=== PATIENT | male | born 1965 ===

== ENCOUNTER 2018-08-14 14:38 | Inpatient (IN) | payer MEDICAID, OTHER ==
[2018-08-14] MEDS ORDERED: Iodixanol 320 MG/ML 200 ML BOTTLE IV ONE (14:58)
[2018-08-14] MEDS ORDERED: Midazolam 2 MG/2 ML VIAL ONE (15:10)
[2018-08-14] MEDS ORDERED: Labetalol 5mg/ml (4ml) ONE (15:16)
[2018-08-14 15:24] VITALS: BMI 28.5
[2018-08-14] MEDS ORDERED: Nitroglycerin 50mg in D5W 50 MG/250 ML BOTTLE IV ONE (15:35)
[2018-08-14] MEDS ORDERED: Heparin25000 units/250ml 1/2NS 25,000 UNITS/250 ML BAG IV PRN (15:35)
--- NOTE | 2018-08-14 15:47 | CP.PCM.PN ---
<Beckie Harper Y - Last Filed: 08/14/18 15:44> Subjective - Date & Time of Evaluation Date of Evaluation: 08/14/18 Time of Evaluation: 15:00 - Subjective Subjective: Patient was met in ambulance bay and escorted up to the brush clearing laborer. No adverse events happened during that time. Consent was obtained, and patient successfully transferred onto the cath table under Dr. Jolley's care. He will be observed in the ICU overnight under the hospitalist service. Objective - Medications Medications: Current Medications Acetaminophen (Tylenol 325mg Tab) 650 mg PO Q6 PRN PRN Reason: Fever >100.4 F Aspirin (Ecotrin) 81 mg PO DAILY [facility] Heparin Sodium (Porcine) (Heparin) 5,000 units SC Q12 [facility] Heparin Sodium/Sodium Chloride (Heparin 13418 Units/250ml 1/2 Normal Saline) 25,000 units in 250 mls @ 10.2 mls/hr IV .Q24H PRN; Protocol PRN Reason: PROTOCOL Losartan Potassium (Cozaar) 50 mg PO DAILY [facility] Metoprolol Tartrate (Lopressor) 50 mg PO BID [facility] Ondansetron HCl (Zofran Inj) 4 mg IVP Q6 PRN PRN Reason: Nausea/Vomiting Rosuvastatin Calcium (Crestor) 20 mg PO HS [facility] Ticagrelor (Brilinta) 90 mg PO BID [facility] Warfarin Sodium (Coumadin) 5 mg PO 1800 [facility] Stop: 08/14/18 18:01 <Alexsandra Mccormick V - Last Filed: 08/14/18 18:40> Objective - Vital Signs/Intake and Output Vital Signs (last 24 hours): Temp Pulse Resp BP Pulse Ox 90 16 134/80 98 08/14/18 18:14 08/14/18 18:14 08/14/18 18:15 08/14/18 18:14 Intake and Output: 08/14/18 08/14/18 06:59 18:59 Intake Total 50 Balance 50 - Medications Medications: Current Medications Acetaminophen (Tylenol 325mg Tab) 650 mg PO Q6 PRN PRN Reason: Fever >100.4 F Aspirin (Ecotrin) 81 mg PO DAILY [facility] Heparin Sodium/Sodium Chloride (Heparin 30096 Units/250ml 1/2 Normal Saline) 25,000 units in 250 mls @ 10.2 mls/hr IV .Q24H PRN; Protocol PRN Reason: PROTOCOL Sodium Chloride (Sodium Chloride 0.45%) 1,000 mls @ 40 mls/hr IV .Q24H [facility] Stop: 08/15/18 04:00 Last Admin: 08/14/18 17:18 Dose: 40 mls/hr Losartan Potassium (Cozaar) 50 mg PO DAILY [facility] Metoprolol Tartrate (Lopressor) 50 mg PO BID [facility] Ondansetron HCl (Zofran Inj) 4 mg IVP Q6 PRN PRN Reason: Nausea/Vomiting Rosuvastatin Calcium (Crestor) 20 mg PO HS [facility] - Labs Labs: APTT 34 SECONDS (21-34) 08/14/18 17:55 Attending/Attestation - Attestation I have personally seen and examined this patient.: Yes I have fully participated in the care of the patient.: Yes I have reviewed all pertinent clinical information, including history, physical exam and plan: Yes Notes (Text): Hospitalist Service Responded to Code Heart transfer Accompanied patient on route to brush clearing laborer. patient noted STEMI at [facility] transferred to [facility] as per code heart transfer protocol. per EMR 53 year old male with prior hx of chf, history of aortic stenosis s/p a ortic valve replacement in 2017, reports he had chest pain this morning while working out at the gym this morning; which prompted him to go the hospital. Patient reports he has not taken his coumadin/aspirin for at least one year. No adverse events while accompanying the patient to the brush clearing laborer.
[2018-08-14] MEDS ORDERED: Sodium Chloride 0.45% 1,000 ML IV SCH (16:00)
--- NOTE | 2018-08-14 17:02 | CP.PCM.CON ---
<Aviva Bell - Last Filed: 08/14/18 17:19> History of Present Illness - History of Present Illness History of Present Illness: ICU Consult Note for Dr. Morton HPI: 53 y/o male with PMHx of HTN and severe aortic stenosis presents s/p code heart and cardiac cath by Dr. Jolley. Patient was in [place] [facility] and was transferred to [facility] for emergent cardiac cath. Per EMR he had in [place] brilinta 180 mg, nitrostat 0.4 mg, heparin drip, ASA 325 mg. Patient with positive troponin 2.41 in [place]. Before patient was driven to the ER by his sister in , he was at the gym working out when his chest pain started. Patient states it was a 10/10 pressure that was not relieved with rest. Patient also tried to drink water without relief, but did not immediately take medications at the gym. Of note, patient has significant history of aortic valve stenosis. He had a replacement almost 2 years ago in [facility] in [place]. He states he has a patient relations director in [place] whom he has not seen for more than a year. He does not remember his name. Patient does not take any home meds, though he knows he is supposed to be on ASA and coumadin regularly. 08/24/16 ECHO: severe , AV mod to severe thickened. EF wnl 50-55%, mild concentric LVH. 08/29/16 cardiac cath: severe and severe AI Patient still with some chest pain bilateral and radiation to left arm, same quality as at the gym, however less pain. Pain was 10/10 and now decreased to 3/10. Per RN from label coder, he had SBP 200s and was given labetalol 20 mg IV. Patient also feels lethargic and was also lethargic in the morning before he went to the ED. Also s/p versed and fentanyl from the label coder. Patient with mild KOHLER. Denies SOB, palpitations, nausea, vomiting, diarrhea. ROS: as per HPI PMHx: as stated above PSHx: aortic valve replacement almost 2 years ago FHx: NC SocHx: denies x 3 Meds: None, denies supplements Allergies: NKDA Past Patient History - Past Medical History & Family History Past Medical History?: Yes - Past Social History Smoking Status: Never Smoked - CARDIAC Hx Cardiac Disorders: Yes (for cardiac surgery. AVR) Hx Congestive Heart Failure: Yes Hx Hypertension: Yes Other/Comment: aortic stenosis/insufficiency (for aortic valve replacement next week ) - PULMONARY Hx Respiratory Disorders: No - NEUROLOGICAL Hx Neurological Disorder: No - HEENT Hx HEENT Problems: No - RENAL Hx Chronic Kidney Disease: No - ENDOCRINE/METABOLIC Hx Endocrine Disorders: No - HEMATOLOGICAL/ONCOLOGICAL Hx Blood Disorders: No - INTEGUMENTARY Hx Dermatological Problems: No - MUSCULOSKELETAL/RHEUMATOLOGICAL Hx Musculoskeletal Disorders: No Hx Falls: No - GASTROINTESTINAL Hx Gastrointestinal Disorders: No - GENITOURINARY/GYNECOLOGICAL Hx Genitourinary Disorders: No - PSYCHIATRIC Hx Psychophysiologic Disorder: No Hx Substance Use: No - SURGICAL HISTORY Hx Surgeries: No - ANESTHESIA Hx Anesthesia: Yes Hx Anesthesia Reactions: No Meds Allergies/Adverse Reactions: Allergies Allergy/AdvReac Type Severity Reaction Status Date / Time No Known Allergies Allergy Verified 08/14/18 14:18 - Medications Medications: Current Medications Acetaminophen (Tylenol 325mg Tab) 650 mg PO Q6 PRN PRN Reason: Fever >100.4 F Aspirin (Ecotrin) 81 mg PO DAILY [facility] Heparin Sodium/Sodium Chloride (Heparin 88065 Units/250ml 1/2 Normal Saline) 25,000 units in 250 mls @ 10.2 mls/hr IV .Q24H PRN; Protocol PRN Reason: PROTOCOL Sodium Chloride (Sodium Chloride 0.45%) 1,000 mls @ 40 mls/hr IV .Q24H [facility] Stop: 08/15/18 04:00 Losartan Potassium (Cozaar) 50 mg PO DAILY [facility] Metoprolol Tartrate (Lopressor) 50 mg PO BID [facility] Ondansetron HCl (Zofran Inj) 4 mg IVP Q6 PRN PRN Reason: Nausea/Vomiting Rosuvastatin Calcium (Crestor) 20 mg PO HS [facility] Warfarin Sodium (Coumadin) 5 mg PO 1800 [facility] Stop: 08/14/18 18:01 Physical Exam - Constitutional Appears: Well - Head Exam Head Exam: ATRAUMATIC, NORMAL INSPECTION, NORMOCEPHALIC - Eye Exam Eye Exam: EOMI, Normal appearance - Neck Exam Neck exam: Positive for: Normal Inspection - Respiratory Exam Respiratory Exam: Clear to Auscultation Bilateral, NORMAL BREATHING PATTERN - Cardiovascular Exam Cardiovascular Exam: Clicks - GI/Abdominal Exam GI & Abdominal Exam: Normal Bowel Sounds, Soft. absent: Distended, Firm, Guarding, Rebound, Rigid - Extremities Exam Extremities exam: Positive for: normal capillary refill, normal inspection, pedal pulses present. Negative for: pedal edema - Neurological Exam Neurological exam: Alert, Oriented x3 - Psychiatric Exam Psychiatric exam: Normal Affect, Normal Mood - Skin Skin Exam: Dry, Intact, Normal Color, Warm Assessment & Plan - Assessment and Plan (Free Text) Assessment: 53 y/o male with PMHx of HTN and severe aortic stenosis presents s/p code heart and cardiac cath by Dr. Jolley. neuro -AAOx3 -no acute issues CV -s/p cardiac cath POD0 08/14/18. Per label coder, only vasospasm was seen. Nitro drip given. -continue with therapeutic cardiac heparin drip -cozaar 50 mg, metoprolol 50 mg BID, ASA, crestor 20 mg, warfarin 5 mg -pending FT4, A1c, lipid panel, TSH -ECHO ordered, pending -follow Dr. Jolley, cardio, recs Pulm -2L NC PRN -maintain SpO2 > 92% -no acute issues GI -no acute issues -Heart healthy diet Renal -on NS 40ml/h -no acute issues -CMP qAM Endo -pending FT4, TSH, A1c ID -patient afebrile, no leukocytosis -no acute issues Heme -on heparin drip + warfarin 5 mg -PT/PTT DVT: heparin drip tonight then tomorrow 5000 sq q12h GI ppx: not indicated Aviva Bell PGY1 <Hardeep Morton - Last Filed: 08/14/18 18:55> Meds - Medications Medications: Current Medications Acetaminophen (Tylenol 325mg Tab) 650 mg PO Q6 PRN PRN Reason: Fever >100.4 F Aspirin (Ecotrin) 81 mg PO DAILY [facility] Heparin Sodium/Sodium Chloride (Heparin 04940 Units/250ml 1/2 Normal Saline) 25,000 units in 250 mls @ 10.2 mls/hr IV .Q24H PRN; Protocol PRN Reason: PROTOCOL Sodium Chloride (Sodium Chloride 0.45%) 1,000 mls @ 40 mls/hr IV .Q24H [facility] Stop: 08/15/18 04:00 Last Admin: 08/14/18 17:18 Dose: 40 mls/hr Losartan Potassium (Cozaar) 50 mg PO DAILY [facility] Metoprolol Tartrate (Lopressor) 50 mg PO BID [facility] Last Admin: 08/14/18 18:31 Dose: 50 mg Ondansetron HCl (Zofran Inj) 4 mg IVP Q6 PRN PRN Reason: Nausea/Vomiting Rosuvastatin Calcium (Crestor) 20 mg PO HS [facility] Results - Vital Signs Recent Vital Signs: Last Vital Signs Temp Pulse 90 08/14/18 18:14 Resp 16 08/14/18 18:14 BP 134/80 08/14/18 18:15 Pulse Ox 98 08/14/18 18:14 - Labs Labs: Laboratory Results - last 24 hr 08/14/18 08/14/18 08/14/18 17:55 17:55 17:55 APTT 34 Hemoglobin A1c 5.6 Triglycerides 170 H Cholesterol 242 H LDL Cholesterol Direct 149 H HDL Cholesterol 57 TSH 3rd Generation 0.64 Attending/Attestation - Attestation I have personally seen and examined this patient.: Yes I have fully participated in the care of the patient.: Yes I have reviewed all pertinent clinical information: Yes Notes (Text): 08/14/18 18:55 Patient seen and examined in the intensive care unit Case discussed with cardiology Status post cardiac cath with coronary vasospasm On Tridil drip Continue present treatment as per cardiol
--- NOTE | 2018-08-14 18:13 | CP.PCM.HP ---
<Aviva Bell - Last Filed: 08/14/18 18:17> History of Present Illness - History of Present Illness History of Present Illness: Medicine H&P for Dr. Mccormick HPI: 53 y/o male with PMHx of HTN and severe aortic stenosis presents s/p code heart and cardiac cath by Dr. Jolley. Patient was in [place] ER and was transferred to [facility] for emergent cardiac cath. Per EMR he had in [place] brilinta 180 mg, nitrostat 0.4 mg, heparin drip, ASA 325 mg. Patient with positive troponin 2.41 in [place]. Before patient was driven to the ER by his sister in , he was at the gym working out when his chest pain started. Patient states it was a 10/10 pressure that was not relieved with rest. Patient also tried to drink water without relief, but did not immediately take medications at the gym. Of note, patient has significant history of aortic valve stenosis. He had a replacement almost 2 years ago in [facility] in [place]. He states he has a mulcher operator in [place] whom he has not seen for more than a year. He does not remember his name. Patient does not take any home meds, though he knows he is supposed to be on ASA and coumadin regularly. 08/24/16 ECHO: severe , AV mod to severe thickened. EF wnl 50-55%, mild concentric LVH. 08/29/16 cardiac cath: severe and severe AI Patient still with some chest pain bilateral and radiation to left arm, same quality as at the gym, however less pain. Pain was 10/10 and now decreased to 3/10. Per RN from public works laborer, he had SBP 200s and was given labetalol 20 mg IV. Patient also feels lethargic and was also lethargic in the morning before he went to the ED. Also s/p versed and fentanyl from the public works laborer. Patient with mild KOHLER. Denies SOB, palpitations, nausea, vomiting, diarrhea. ROS: as per HPI PMHx: as stated above PSHx: aortic valve replacement almost 2 years ago FHx: NC SocHx: denies x 3 Meds: None, denies supplements Allergies: NKDA Present on Admission - Present on Admission Any Indicators Present on Admission: Yes Review of Systems - Constitutional Constitutional: As Per HPI Past Patient History - Past Medical History & Family History Past Medical History?: Yes - Past Social History Smoking Status: Never Smoked - CARDIAC Hx Cardiac Disorders: Yes (for cardiac surgery. AVR) Hx Congestive Heart Failure: Yes Hx Hypertension: Yes Other/Comment: aortic stenosis/insufficiency (for aortic valve replacement next week ) - PULMONARY Hx Respiratory Disorders: No - NEUROLOGICAL Hx Neurological Disorder: No - HEENT Hx HEENT Problems: No - RENAL Hx Chronic Kidney Disease: No - ENDOCRINE/METABOLIC Hx Endocrine Disorders: No - HEMATOLOGICAL/ONCOLOGICAL Hx Blood Disorders: No - INTEGUMENTARY Hx Dermatological Problems: No - MUSCULOSKELETAL/RHEUMATOLOGICAL Hx Musculoskeletal Disorders: No Hx Falls: No - GASTROINTESTINAL Hx Gastrointestinal Disorders: No - GENITOURINARY/GYNECOLOGICAL Hx Genitourinary Disorders: No - PSYCHIATRIC Hx Psychophysiologic Disorder: No Hx Substance Use: No - SURGICAL HISTORY Hx Surgeries: No - ANESTHESIA Hx Anesthesia: Yes Hx Anesthesia Reactions: No Meds Allergies/Adverse Reactions: Allergies Allergy/AdvReac Type Severity Reaction Status Date / Time No Known Allergies Allergy Verified 08/14/18 14:18 Physical Exam - Constitutional Appears: Well - Head Exam Head Exam: ATRAUMATIC, NORMAL INSPECTION, NORMOCEPHALIC - Eye Exam Eye Exam: EOMI, Normal appearance - Neck Exam Neck exam: Positive for: Normal Inspection - Respiratory Exam Respiratory Exam: Clear to Auscultation Bilateral, NORMAL BREATHING PATTERN - Cardiovascular Exam Cardiovascular Exam: Clicks (throughout all cardiac listening posts), REGULAR R HYTHM. absent: Bradycardia, Tachycardia - GI/Abdominal Exam GI & Abdominal Exam: Normal Bowel Sounds, Soft. absent: Distended, Firm, Guarding, Rebound, Rigid - Extremities Exam Extremities exam: Positive for: normal capillary refill, normal inspection, pedal pulses present - Neurological Exam Neurological exam: Alert, Oriented x3 - Psychiatric Exam Psychiatric exam: Normal Affect, Normal Mood - Skin Skin Exam: Dry, Intact, Normal Color, Warm Results - Vital Signs Recent Vital Signs: Last Vital Signs Temp Pulse 74 08/14/18 17:30 Resp 19 08/14/18 17:30 BP 139/87 08/14/18 17:30 Pulse Ox 100 08/14/18 17:30 Assessment & Plan - Assessment and Plan (Free Text) Assessment: 53 y/o male with PMHx of HTN and severe aortic stenosis presents s/p code heart and cardiac cath by Dr. Jolley. neuro -AAOx3 -no acute issues CV -s/p cardiac cath POD0 08/14/18. Per public works laborer, only vasospasm was seen. Nitro drip given. -continue with therapeutic cardiac heparin drip -cozaar 50 mg, metoprolol 50 mg BID, ASA, crestor 20 mg, warfarin 5 mg -pending FT4, A1c, lipid panel, TSH -ECHO ordered, pending -follow Dr. Jolley, cardio, recs Pulm -2L NC PRN -maintain SpO2 > 92% -no acute issues GI -no acute issues -Heart healthy diet Renal -on NS 40ml/h -no acute issues -CMP qAM Endo -pending FT4, TSH, A1c ID -patient afebrile, no leukocytosis -no acute issues Heme -on heparin drip + warfarin 5 mg -PT/PTT DVT: heparin drip GI ppx: not indicated Aviva Bell PGY1 <Alexsandra Mccormick V - Last Filed: 08/15/18 09:24> Results - Vital Signs Recent Vital Signs: Last Vital Signs Temp Pulse 90 08/14/18 18:14 Resp 16 08/14/18 18:14 BP 134/80 08/14/18 18:15 Pulse Ox 98 08/14/18 18:14 - Labs Result Diagrams: 08/15/18 02:45 08/15/18 02:45 Labs: Laboratory Results - last 24 hr 08/14/18 08/14/18 08/14/18 17:55 17:55 17:55 APTT 34 Hemoglobin A1c 5.6 Triglycerides 170 H Cholesterol 242 H LDL Cholesterol Direct 149 H HDL Cholesterol 57 Attending/Attestation - Attestation I have personally seen and examined this patient.: Yes I have fully participated in the care of the patient.: Yes I have reviewed all pertinent clinical information: Yes Notes (Text): This is late computer entry for 08/14/18. Patient seen, examined, and case discussed with medical coding technician. Patient with known hx of mechanical aortic valve replacement treatment of aortic stenosis in 2017, history of congestive heart failure, history of noncompliance with aspirin and coumadin who comes in following [place], reporting pain over the pectoralis muscle which did not subsided upon cessation of working out, advised his sister to bring him to the hospital which his symptoms did not improve. Patient was seen in [place] ER wherein code heart protocol was initiated and sent to [facility] for cardiac cath per protocol. Patient underwent cardiac cath which revealed coronary vasospasm. Following cardiac cath, patient admitted to the intensive care unit. 1. Chest Pain STEMI Assessment/Plan * Patient was called as code heart on 08/14/17 at [place] ER and transferred to [facility] per code heart protocol * sales operations director (Dr. Jolley) division commander-->help appreciated * Patient received Aspirin 325mg PO X1, Brilinta 180mg PO X1 and Heparin bolus/heparin drip, and Nitro in the ED. * Chest xray (08/14/18): no active disease. No acute/significant interval changes. * EKG (08/14/18): anterolateral STEMI (1, avl, v4-v6) * Prior cardiac cath (08/29/16): unremarkable coronary circulation, severe aortic stenosis * Cardiac cath awaiting official report; endorsed Coronary vasospasm * Prior echo (08/17/16): left atrium mildly dilated, spontaneous contrast in left atrium consistent with low flow state. Spontaneous contrast is seen in the left atrial appendage. Right atrium is mildly dilated. Spontaneous contrast is karla in the right atrium consistent with low flow state. Aortic valve is severely calcified. Severe aortic regurgitation. Severe valvular aortic stenosis. * Pending echocardiogram * Heparin drip * Aspirin 81mg PO daily * Losartan 50mg PO daily * Lopressor 50mg PO BID * Crestor 20mg POqHS 2. History of Aortic Stenosis s/p Aortic Valve Replacement in 2017 (mechanical) History of noncompliance with anticoagulation post procedure Assessment/Plan * Patient is on heparin drip; will need to be transitioned back to Coumadin to theraputic dosing prior to discharge 3. Prophylactic measure * Heparin drip * GI ppx not indicated
[2018-08-14] MEDS: Heparin25000 units/250ml 1/2NS 25,000 UNITS/250 ML BAG IV PRN (19:35)
[2018-08-14 20:43] LABS: BARBITURATES, UR NEGATIVE (NEGATIVE); OPIATES, UR NEGATIVE (NEGATIVE); PHENCYCLIDINE, UR NEGATIVE (NEGATIVE)
[2018-08-14 20:45] LABS: BENZODIAZEPINES, UR POSITIVE (NEGATIVE)
[2018-08-15 02:48] LABS: BASO % 0.5 % (0.0-2.0); EOS # 0.2 K/uL (0.0-0.7); EOS % 1.7 % (0.0-4.0); LYMPH % 23.1 % (20.0-40.0); MEAN CELL VOLUME 95.2 fL (80.0-94.0); MEAN CORPUSCULAR HEMOGLOBIN 31.7 pg (27.0-31.0); MEAN CORPUSCULAR HGB CONC 33.3 g/dL (33.0-37.0); MEAN PLATELET VOLUME 9.2 fL (7.2-11.7); MONO # 0.8 K/uL (0.0-0.8); MONO % 8.6 % (0.0-10.0); NEUT # 5.9 K/uL (1.8-7.0); NEUT % 66.1 % (50.0-75.0); RBC 4.44 Mil/uL (4.40-5.90); RED CELL DISTRIBUTION WIDTH 13.1 % (11.5-14.5); WHITE BLOOD COUNT 8.9 K/uL (4.8-10.8)
[2018-08-15 03:02] LABS: ALB/GLOB RATIO 1.5 (1.0-2.1); ALBUMIN 4.3 g/dL (3.5-5.0); ALT/SGPT 55 U/L (21-72); AST/SGOT 435 U/L (17-59); BLOOD UREA NITROGEN 19 mg/dL (9-20); GFR NON-AFRICAN AMERICAN > 60
--- NOTE | 2018-08-15 07:23 | CP.PCM.PN ---
Subjective - Date & Time of Evaluation Date of Evaluation: 08/15/18 Time of Evaluation: 07:18 - Subjective Subjective: Patient s/p Cardiac Cath 1. Normal coronaries ? Distal LAD spasm 2. No Aortic dissection or aneurysm Recommend medical management for HTN and Hyperlipidemia Cardizem 30mg po bid for ? Coronary spasm For Mechanical Aortic valve recommend ASA 81 daily plus Coumadin for a goal INR of 2-3 Continue IV Heparic till patient reaches goal INR Recommend f/u with [facility] for medicine and cardiology No further cardiac work up needed at this time I will sign off. Please reconsult if additional help needed Thank you Objective - Vital Signs/Intake and Output Vital Signs (last 24 hours): Temp Pulse Resp BP Pulse Ox 98 F 71 18 151/83 H 99 08/15/18 04:00 08/15/18 05:00 08/15/18 05:00 08/15/18 04:48 08/15/18 05:00 Intake and Output: 08/15/18 08/15/18 06:59 18:59 Intake Total 1382.0 Output Total 2200 Balance -818.0 - Medications Medications: Current Medications Acetaminophen (Tylenol 325mg Tab) 650 mg PO Q6 PRN PRN Reason: Fever >100.4 F Aspirin (Ecotrin) 81 mg PO DAILY [facility] Heparin Sodium/Sodium Chloride (Heparin 33485 Units/250ml 1/2 Normal Saline) 25,000 units in 250 mls @ 10.2 mls/hr IV .Q24H PRN; Protocol PRN Reason: PROTOCOL Last Admin: 08/14/18 19:35 Dose: 12 units/kg/hr, 10.2 mls/hr Losartan Potassium (Cozaar) 50 mg PO DAILY [facility] Metoprolol Tartrate (Lopressor) 50 mg PO BID [facility] Last Admin: 08/14/18 18:31 Dose: 50 mg Ondansetron HCl (Zofran Inj) 4 mg IVP Q6 PRN PRN Reason: Nausea/Vomiting Pneumococcal Polyvalent Vaccine (Pneumovax 23 Vaccine) 0.5 ml IM .ONCE ONE Stop: 08/16/18 10:01 Rosuvastatin Calcium (Crestor) 20 mg PO HS [facility] Last Admin: 08/14/18 21:24 Dose: 20 mg - Labs Labs: 08/15/18 02:45 08/15/18 02:45 APTT 59 SECONDS (21-34) H D 08/15/18 02:45
[2018-08-15 08:33] LABS: INR 1.2; PROTHROMBIN TIME 12.8 SECONDS (9.7-12.2)
[2018-08-15] MEDS ORDERED: Potassium Chloride 20 mEq ER Tab PO ONE (09:00)
--- NOTE | 2018-08-15 09:31 | CP.PCM.PN ---
Subjective - Date & Time of Evaluation Date of Evaluation: 08/15/18 Time of Evaluation: 09:00 - Subjective Subjective: Medical Attending Note: Patient see and examined at bedside. Patient completed breakfast this morning. Patient reports muscle aches over the pectoralist muscle. Patient denies shortness of breath, denies palpitations, denies headache, denies abdominal pain, denies nausea, denies vomitting, denies constipation, denies urinary complaints. Objective - Vital Signs/Intake and Output Vital Signs (last 24 hours): Temp Pulse Resp BP Pulse Ox 97.3 F L 72 15 176/96 H 99 08/15/18 08:00 08/15/18 08:17 08/15/18 08:17 08/15/18 08:18 08/15/18 08:17 Intake and Output: 08/15/18 08/15/18 06:59 18:59 Intake Total 1492.2 30.6 Output Total 2600 Balance -1107.8 30.6 - Medications Medications: Current Medications Acetaminophen (Tylenol 325mg Tab) 650 mg PO Q6 PRN PRN Reason: Fever >100.4 F Aspirin (Ecotrin) 81 mg PO DAILY [facility] Heparin Sodium/Sodium Chloride (Heparin 61404 Units/250ml 1/2 Normal Saline) 25,000 units in 250 mls @ 10.2 mls/hr IV .Q24H PRN; Protocol PRN Reason: PROTOCOL Last Admin: 08/14/18 19:35 Dose: 12 units/kg/hr, 10.2 mls/hr Losartan Potassium (Cozaar) 50 mg PO DAILY [facility] Metoprolol Tartrate (Lopressor) 50 mg PO BID [facility] Last Admin: 08/14/18 18:31 Dose: 50 mg Ondansetron HCl (Zofran Inj) 4 mg IVP Q6 PRN PRN Reason: Nausea/Vomiting Pneumococcal Polyvalent Vaccine (Pneumovax 23 Vaccine) 0.5 ml IM .ONCE ONE Stop: 08/16/18 10:01 Rosuvastatin Calcium (Crestor) 20 mg PO HS [facility] Last Admin: 08/14/18 21:24 Dose: 20 mg - Labs Labs: 08/15/18 02:45 08/15/18 02:45 PT 12.8 SECONDS (9.7-12.2) H 08/15/18 08:05 INR 1.2 08/15/18 08:05 APTT 62 SECONDS (21-34) H 08/15/18 08:05 - Constitutional Appears: Non-toxic, No Acute Distress - Head Exam Head Exam: NORMAL INSPECTION - Eye Exam Eye Exam: EOMI, PERRL Pupil Exam: NORMAL ACCOMODATION, PERRL Additional comments: left upper eye swelling (reduced) no discharge - Respiratory Exam Respiratory Exam: Clear to Ausculation Bilateral, NORMAL BREATHING PATTERN. absent: Rales, Rhonchi, Wheezes - Cardiovascular Exam Cardiovascular Exam: +S1, +S2, Murmur Additional comments: mechanical click - GI/Abdominal Exam GI & Abdominal Exam: Soft, Normal Bowel Sounds. absent: Distended, Firm, Guarding, Rigid, Tenderness, Rebound Additional comments: right side groin: cath site clean/dry/intact - Extremities Exam Extremities Exam: absent: Pedal Edema, Tenderness - Neurological Exam Neurological Exam: Alert, Awake, Oriented x3 Neuro motor strength exam: Left Upper Extremity: 5, Right Upper Extremity: 5, Left Lower Extremity: 5, Right Lower Extremity: 5 - Psychiatric Exam Psychiatric exam: Normal Affect, Normal Mood - Skin Skin Exam: Dry, Normal Color, Warm Assessment and Plan (1) STEMI (ST elevation myocardial infarction) Assessment & Plan: s/p cath; coronary spasm noted Status: Acute (2) Coronary artery vasospasm Assessment & Plan: cardiac cath 2018 Status: Acute (3) Status post mechanical aortic valve replacement Assessment & Plan: 2017 in [facility] noncompliant on aspirin/coumadin post procedure advised he will put himself at risk for stroke if he continues to be noncompliant Status: Chronic (4) Aortic stenosis Assessment & Plan: s/p mechanical aortic valve replacement in 2017 Status: Chronic (5) HTN (hypertension) Assessment & Plan: uncontrolled on arb, beta ludivina, and start calcium channel ludivina Status: Chronic (6) Lipid disorder Assessment & Plan: statin diet/exercise modifications Status: Chronic (7) Prophylactic measure Status: Acute Attending/Attestation - Attestation I have personally seen and examined this patient.: Yes I have fully participated in the care of the patient.: Yes I have reviewed all pertinent clinical information, including history, physical exam and plan: Yes Notes (Text): 1. Chest Pain STEMI Assessment/Plan * Patient was called as code heart on 08/14/17 at [place] [facility] and [facility] * tube washer (Dr. Jolley) nursing information systems coordinator-->help appreciated * Patient s/p Cardiac Cath 08/14/18 * 1. Normal coronaries ? Distal LAD spasm * 2. No Aortic dissection or aneurysm * Recommend medical management for HTN and Hyperlipidemia * Cardizem 30mg po bid for ? Coronary spasm * For Mechanical Aortic valve recommend ASA 81 daily plus Coumadin for a goal INR of 2-3 * Continue IV Heparic till patient reaches goal INR * Recommend f/u with [facility] for medicine and cardiology * Patient received Aspirin 325mg PO X1, Brilinta 180mg PO X1 and Heparin bolus/heparin drip, and Nitro in the ED. * Chest xray (08/14/18): no active disease. No acute/significant interval changes. * EKG (08/14/18): anterolateral STEMI (1, avl, v4-v6) * Prior cardiac cath (08/29/16): unremarkable coronary circulation, severe aortic stenosis * Prior echo (08/17/16): left atrium mildly dilated, spontaneous contrast in left atrium consistent with low flow state. Spontaneous contrast is seen in the left atrial appendage. Right atrium is mildly dilated. Spontaneous contrast is karla in the right atrium consistent with low flow state. Aortic valve is severely calcified. Severe aortic regurgitation. Severe valvular aortic stenosis * Pending echocardiogram * Heparin drip * Aspirin 81mg PO daily * Losartan 50mg PO daily * Lopressor 50mg PO BID * Crestor 20mg POqHS * Start Cardizem 30mg PO BID * UDS: negative except for benzo * hgba1c: 5.6 2. History of Aortic Stenosis s/p Aortic Valve Replacement in 2017 (mechanical) History of noncompliance with anticoagulation post procedure Assessment/Plan * Patient is on heparin drip; will need to be transitioned back to Coumadin to theraputic dosing prior to discharge * Received coumadin 5mg PO last night, awaiting INR for this morning 3. Hypokalemia Assessment/Plan * monitor and replete if needed 4. Hypertension, uncontrolled Assessment/Plan * uncontrolled * Losartan 50mg PO Daily * Lopressor 50mg PO BID * Start Cardizem 30mg PO BID 5. Lipid Disorder Assessment/Plan * Lipid panel: 170 TG, 242 chol, 149 LDL, 57 HDL * Crestor 20mg POqHS 6. Stye over Left Eye Assessment/Plan * Advised to use warm compresses to relieve mild swelling 7. Prophylactic measure * Heparin drip * GI ppx not clinically indicated
--- NOTE | 2018-08-15 10:59 | CP.PCM.PN ---
Subjective - Date & Time of Evaluation Date of Evaluation: 08/15/18 Time of Evaluation: 10:59 - Subjective Subjective: Patient is a 53-year-old male had a history of aortic valve replacement. Admitted to the hospital with chest pain. Emergency angiogram, showing no evidence of coronary obstruction. Possible spasm. Currently on heparin drip before aortic valve mechanical. He is doing well. Patient is stable. He can be transferred to telemetry. Continue the heparin. Losartan, beta-ludivina and will follow the patient. Objective - Vital Signs/Intake and Output Vital Signs (last 24 hours): Temp Pulse Resp BP Pulse Ox 97.3 F L 73 16 158/84 H 98 08/15/18 08:00 08/15/18 10:30 08/15/18 10:30 08/15/18 10:18 08/15/18 10:30 Intake and Output: 08/15/18 08/15/18 06:59 18:59 Intake Total 1492.2 40.8 Output Total 2600 Balance -1107.8 40.8 - Medications Medications: Current Medications Acetaminophen (Tylenol 325mg Tab) 650 mg PO Q6 PRN PRN Reason: Fever >100.4 F Aspirin (Ecotrin) 81 mg PO DAILY [facility] Last Admin: 08/15/18 09:33 Dose: 81 mg Diltiazem HCl (Cardizem) 30 mg PO BID [facility] Last Admin: 08/15/18 10:26 Dose: 30 mg Famotidine (Pepcid) 20 mg PO BID [facility] Last Admin: 08/15/18 10:26 Dose: 20 mg Heparin Sodium/Sodium Chloride (Heparin 71720 Units/250ml 1/2 Normal Saline) 25,000 units in 250 mls @ 10.2 mls/hr IV .Q24H PRN; Protocol PRN Reason: PROTOCOL Last Admin: 08/14/18 19:35 Dose: 12 units/kg/hr, 10.2 mls/hr Losartan Potassium (Cozaar) 50 mg PO DAILY [facility] Last Admin: 08/15/18 09:33 Dose: 50 mg Metoprolol Tartrate (Lopressor) 50 mg PO BID [facility] Last Admin: 08/15/18 09:31 Dose: 50 mg Ondansetron HCl (Zofran Inj) 4 mg IVP Q6 PRN PRN Reason: Nausea/Vomiting Pneumococcal Polyvalent Vaccine (Pneumovax 23 Vaccine) 0.5 ml IM .ONCE ONE Stop: 08/16/18 10:01 Rosuvastatin Calcium (Crestor) 20 mg PO HS [facility] Last Admin: 08/14/18 21:24 Dose: 20 mg Warfarin Sodium (Coumadin) 5 mg PO 1800 [facility] Stop: 08/15/18 18:01 - Labs Labs: 08/15/18 02:45 08/15/18 02:45 PT 12.8 SECONDS (9.7-12.2) H 08/15/18 08:05 INR 1.2 08/15/18 08:05 APTT 62 SECONDS (21-34) H 08/15/18 08:05
[2018-08-15] MEDS: Heparin25000 units/250ml 1/2NS 25,000 UNITS/250 ML BAG IV PRN (21:56)
[2018-08-16 07:09] LABS: INR 1.2; PROTHROMBIN TIME 13.4 SECONDS (9.7-12.2)
[2018-08-16 07:14] LABS: BASO % 0.3 % (0.0-2.0); EOS % 0.3 % (0.0-4.0); HEMOGLOBIN 14.2 g/dL (12.0-18.0); LYMPH # 1.8 K/uL (1.0-4.3); LYMPH % 19.2 % (20.0-40.0); MEAN CELL VOLUME 95.7 fL (80.0-94.0); MEAN CORPUSCULAR HEMOGLOBIN 32.4 pg (27.0-31.0); MEAN CORPUSCULAR HGB CONC 33.9 g/dL (33.0-37.0); MEAN PLATELET VOLUME 9.7 fL (7.2-11.7); MONO % 10.2 % (0.0-10.0); NEUT # 6.6 K/uL (1.8-7.0); NRBC % 0.2 % (0.0-2.0); RBC 4.38 Mil/uL (4.40-5.90); RED CELL DISTRIBUTION WIDTH 13.1 % (11.5-14.5); WHITE BLOOD COUNT 9.4 K/uL (4.8-10.8)
[2018-08-16 07:25] LABS: ALB/GLOB RATIO 1.4 (1.0-2.1); ALBUMIN 4.4 g/dL (3.5-5.0); ALT/SGPT 55 U/L (21-72); AST/SGOT 260 U/L (17-59); BLOOD UREA NITROGEN 17 mg/dL (9-20); CALCIUM 9.2 mg/dl (8.6-10.4); GFR NON-AFRICAN AMERICAN > 60
[2018-08-16] MEDS ORDERED: Pneumococcal 23-Valent Vaccine IM ONE (10:00)
--- NOTE | 2018-08-16 18:16 | CP.PCM.PN ---
Subjective - Date & Time of Evaluation Date of Evaluation: 08/16/18 Time of Evaluation: 18:00 - Subjective Subjective: Medical Attending Note patient seen and examined at bedside. Patient is accompanied with his son in law, mother in law and son. Patient allows to speak his medical information in front of his family. patient denies chest pain, denies cough, denies headache, denies abdominal pain, denies nausea, denies vomitting, denies constipation, d enies diarrhea. Objective - Vital Signs/Intake and Output Vital Signs (last 24 hours): Temp Pulse Resp BP Pulse Ox 98.8 F 67 19 133/86 100 08/16/18 12:00 08/16/18 12:00 08/16/18 12:00 08/16/18 12:00 08/16/18 12:00 Intake and Output: 08/16/18 08/16/18 06:59 18:59 Intake Total 460.2 1462.4 Output Total 1380 Balance 460.2 82.4 - Medications Medications: Current Medications Acetaminophen (Tylenol 325mg Tab) 650 mg PO Q6 PRN PRN Reason: Fever >100.4 F Aspirin (Ecotrin) 81 mg PO DAILY [facility] Last Admin: 08/16/18 09:12 Dose: 81 mg Diltiazem HCl (Cardizem) 30 mg PO BID [facility] Last Admin: 08/16/18 17:12 Dose: 30 mg Famotidine (Pepcid) 20 mg PO BID [facility] Last Admin: 08/16/18 17:12 Dose: 20 mg Heparin Sodium/Sodium Chloride (Heparin 84028 Units/250ml 1/2 Normal Saline) 25,000 units in 250 mls @ 10.2 mls/hr IV .Q24H PRN; Protocol PRN Reason: PROTOCOL Last Admin: 08/15/18 21:56 Dose: 12 units/kg/hr, 10.2 mls/hr Losartan Potassium (Cozaar) 50 mg PO DAILY [facility] Last Admin: 08/16/18 09:12 Dose: 50 mg Metoprolol Tartrate (Lopressor) 50 mg PO BID [facility] Last Admin: 08/16/18 17:12 Dose: 50 mg Rosuvastatin Calcium (Crestor) 20 mg PO HS [facility] Last Admin: 08/15/18 21:53 Dose: 20 mg - Labs Labs: 08/16/18 06:48 08/16/18 06:48 PT 13.4 SECONDS (9.7-12.2) H 08/16/18 06:48 INR 1.2 08/16/18 06:48 APTT 71 SECONDS (21-34) H D 08/16/18 06:48 - Constitutional Appears: Non-toxic, No Acute Distress - Head Exam Head Exam: NORMAL INSPECTION - Eye Exam Eye Exam: EOMI - ENT Exam ENT Exam: Mucous Membranes Moist - Respiratory Exam Respiratory Exam: Clear to Ausculation Bilateral, NORMAL BREATHING PATTERN. absent: Rales, Rhonchi, Wheezes - Cardiovascular Exam Cardiovascular Exam: Clicks, REGULAR RHYTHM, +S1, +S2 - GI/Abdominal Exam GI & Abdominal Exam: Soft, Normal Bowel Sounds. absent: Distended, Firm, Guarding, Rigid, Tenderness, Hypoactive Bowel Sounds, Rebound - Extremities Exam Extremities Exam: absent: Joint Swelling, Pedal Edema, Tenderness - Neurological Exam Neurological Exam: Alert, Awake, Oriented x3 - Psychiatric Exam Psychiatric exam: Normal Affect, Normal Mood - Skin Skin Exam: Dry, Intact, Normal Color, Warm Assessment and Plan (1) STEMI (ST elevation myocardial infarction) Status: Acute (2) Coronary artery vasospasm Status: Acute (3) Status post mechanical aortic valve replacement Status: Chronic (4) Aortic stenosis Status: Chronic (5) HTN (hypertension) Status: Chronic (6) Lipid disorder Status: Chronic (7) Prophylactic measure Status: Acute Attending/Attestation - Attestation I have personally seen and examined this patient.: Yes I have fully participated in the care of the patient.: Yes I have reviewed all pertinent clinical information, including history, physical exam and plan: Yes Notes (Text): 08/16/18 18:17 1. Chest Pain STEMI Assessment/Plan * Patient was called as code heart on 08/14/17 at [place] [facility] and transferred to [facility] per code heart protocol * improvement lead (Dr. Jolley) skin lifter bacon-->help appreciated * Patient s/p Cardiac Cath 08/14/18 * 1. Normal coronaries ? Distal LAD spasm * 2. No Aortic dissection or aneurysm * Recommend medical management for HTN and Hyperlipidemia * Cardizem 30mg po bid for ? Coronary spasm * For Mechanical Aortic valve recommend ASA 81 daily plus Coumadin for a goal INR of 2-3 * Continue IV Heparic till patient reaches goal INR * Recommend f/u with [facility] for medicine and cardiology * Patient received Aspirin 325mg PO X1, Brilinta 180mg PO X1 and Heparin bolus/ heparin drip, and Nitro in the ED. * Chest xray (08/14/18): no active disease. No acute/significant interval changes. * EKG (08/14/18): anterolateral STEMI (1, avl, v4-v6) * Prior cardiac cath (08/29/16): unremarkable coronary circulation, severe aortic stenosis * Prior echo (08/17/16): left atrium mildly dilated, spontaneous contrast in left atrium consistent with low flow state. Spontaneous contrast is seen in the left atrial appendage. Right atrium is mildly dilated. Spontaneous contrast is karla in the right atrium consistent with low flow state. Aortic valve is severely calcified. Severe aortic regurgitation. Severe valvular aortic stenosis * Pending echocardiogram * Heparin drip being transitioned to coumadin * Patient is not a reliable candidate to self-administer lovenox shots at home; reports he will not do it. He will need INR checks. patient is not indicated for NOAC. Patient will need Coumadin. * Aspirin 81mg PO daily * Increase Losartan 100mg PO daily * Lopressor 50mg PO BID * Crestor 20mg POqHS * Start Cardizem 30mg PO BID * UDS: negative except for benzo * hgba1c: 5.6 2. History of Aortic Stenosis s/p Aortic Valve Replacement in 2017 (mechanical) History of noncompliance with anticoagulation post procedure Assessment/Plan * Patient is on heparin drip; will need to be transitioned back to Coumadin to theraputic dosing prior to discharge * Received coumadin 5mg PO last night * Patient is noncompliant and self admits he will not self-administer lovenox shots as he is being bridged nor NOAC is indicated for mechanical aortic valve. 3. Hypokalemia Assessment/Plan * monitor and replete if needed 4. Hypertension, uncontrolled Assessment/Plan * uncontrolled * Losartan 100mg PO Daily * Lopressor 50mg PO BID * Start Cardizem 30mg PO BID 5. Lipid Disorder Assessment/Plan * Lipid panel: 170 TG, 242 chol, 149 LDL, 57 HDL * Crestor 20mg POqHS 6. Stye over Left Eye Assessment/Plan * Advised to use warm compresses to relieve mild swelling 7. Prophylactic measure * Heparin drip-->Coumadin * GI ppx: pepcid 20mg PO BID Disposition: patient is on telemetry. patient is being bridged from heparin drip to coumadin. patient will not take self administer lovenox shots and admits he will not use it nor NOAC indicated at this time for prophylaxis with mechanical aortic valve. He will need to be transitioned to coumadin and need INR checks.
--- NOTE | 2018-08-16 20:35 | CARDCATH ---
PROCEDURE DATE: 08/14/2018 PROCEDURES: 1. Left heart catheterization. 2. Coronary angiogram. 3. Ascending root aortogram. REFERRING PHYSICIAN: Alexsandra Mccormick DO PERFORMING PHYSICIAN: Caden Jolley MD CLINICAL INDICATIONS: 1. Chest pain. 2. Hypertension. 3. History of mechanical aortic valve replacement. 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 EKG has shown ST elevations in the anterior leads. Code Heart was activated. The patient was brought emergently to [facility] for the cardiac catheterization. DESCRIPTION OF PROCEDURE: After informed consent, the patient was prepped and draped in the usual sterile fashion. Lidocaine 2% was given in the right groin for local anesthesia. Using micropuncture technique, 6-Indonesian sheath was introduced into right common femoral artery. A JL4 diagnostic catheter was engaged into left main coronary artery. Contrast was injected and left coronary angiogram was done. Then, the catheter was exchanged to JR4 6-Indonesian diagnostic catheter. The catheter was engaged into the right coronary artery. Contrast was injected and right coronary angiogram was done. Then, using the pigtail, aortic root angiogram was done. The patient tolerated the procedure well. Post-procedure, Mynx closure device was deployed in the right groin with excellent hemostasis. FINDINGS: 1. Left main coronary artery is patent. 2. Proximal and mid LAD is patent. 3. Distal LAD has some spasm, which got relieved with intracoronary nitroglycerin. Diagonal branches are patent. 4. Left circumflex and left obtuse marginal branches are patent. 6. Right coronary artery is dominant and patient. 7. Aortic angiogram is normal. 8. Mechanical aortic valve is seen. IMPRESSION: 1. Patent coronaries. 2. Left anterior descending spasm was relieved by intracoronary nitroglycerin. RECOMMENDATIONS: Recommend medical management with Coumadin, goal INR of 2 to 3 and continue aspirin 81 mg daily. Recommend calcium channel ludivina for coronary vasospasm. Caden Jolley MD
[2018-08-17] MEDS: Heparin25000 units/250ml 1/2NS 25,000 UNITS/250 ML BAG IV PRN (00:14)
[2018-08-17 06:03] LABS: BASO % 0.5 % (0.0-2.0); EOS # 0.1 K/uL (0.0-0.7); EOS % 1.2 % (0.0-4.0); HEMOGLOBIN 14.3 g/dL (12.0-18.0); LYMPH % 29.5 % (20.0-40.0); MEAN CELL VOLUME 95.6 fL (80.0-94.0); MEAN CORPUSCULAR HEMOGLOBIN 32.5 pg (27.0-31.0); MEAN PLATELET VOLUME 9.6 fL (7.2-11.7); MONO # 0.8 K/uL (0.0-0.8); MONO % 11.6 % (0.0-10.0); NEUT # 3.8 K/uL (1.8-7.0); NEUT % 57.2 % (50.0-75.0); RBC 4.41 Mil/uL (4.40-5.90); RED CELL DISTRIBUTION WIDTH 13.1 % (11.5-14.5); WHITE BLOOD COUNT 6.7 K/uL (4.8-10.8)
[2018-08-17 06:17] LABS: INR 1.4; PROTHROMBIN TIME 14.8 SECONDS (9.7-12.2)
[2018-08-17 06:25] LABS: ALB/GLOB RATIO 1.4 (1.0-2.1); ALBUMIN 4.4 g/dL (3.5-5.0); ALT/SGPT 42 U/L (21-72); AST/SGOT 146 U/L (17-59); BLOOD UREA NITROGEN 20 mg/dL (9-20); CALCIUM 9.2 mg/dl (8.6-10.4); GFR NON-AFRICAN AMERICAN > 60
--- NOTE | 2018-08-17 08:37 | CP.PCM.PN ---
Subjective - Date & Time of Evaluation Date of Evaluation: 08/17/18 Time of Evaluation: 08:30 - Subjective Subjective: Medical Attending Note: Patient seen and examined at bedside. No acute events overnight. Patient denies acute complaints. Patient eagerly awaiting to go home but will not give himself Lovenox shots. Objective - Vital Signs/Intake and Output Vital Signs (last 24 hours): Temp Pulse Resp BP Pulse Ox 97.6 F 76 20 140/84 98 08/17/18 08:00 08/17/18 08:00 08/17/18 08:00 08/17/18 08:00 08/17/18 08:00 Intake and Output: 08/17/18 08/17/18 06:59 18:59 Intake Total 250 1242.4 Output Total 1300 Balance 250 -57.6 - Medications Medications: Current Medications Acetaminophen (Tylenol 325mg Tab) 650 mg PO Q6 PRN PRN Reason: Fever >100.4 F Aspirin (Ecotrin) 81 mg PO DAILY [facility] Last Admin: 08/16/18 09:12 Dose: 81 mg Diltiazem HCl (Cardizem) 30 mg PO BID [facility] Last Admin: 08/16/18 17:12 Dose: 30 mg Famotidine (Pepcid) 20 mg PO BID [facility] Last Admin: 08/16/18 17:12 Dose: 20 mg Heparin Sodium/Sodium Chloride (Heparin 06168 Units/250ml 1/2 Normal Saline) 25,000 units in 250 mls @ 10.2 mls/hr IV .Q24H PRN; Protocol PRN Reason: PROTOCOL Last Admin: 08/17/18 00:14 Dose: 12 units/kg/hr, 10.2 mls/hr Losartan Potassium (Cozaar) 100 mg PO DAILY [facility] Metoprolol Tartrate (Lopressor) 50 mg PO BID [facility] Last Admin: 08/16/18 17:12 Dose: 50 mg Rosuvastatin Calcium (Crestor) 20 mg PO HS [facility] Last Admin: 08/16/18 21:22 Dose: 20 mg Warfarin Sodium (Coumadin) 5 mg PO 1800 [facility] Stop: 08/17/18 18:01 - Labs Labs: 08/17/18 05:52 08/17/18 05:52 PT 14.8 SECONDS (9.7-12.2) H 01/07/19 05:52 INR 1.4 08/17/18 05:52 APTT 60 SECONDS (21-34) H D 08/17/18 05:52 - Constitutional Appears: Non-toxic, No Acute Distress - Head Exam Head Exam: NORMAL INSPECTION - Eye Exam Eye Exam: EOMI - ENT Exam ENT Exam: Mucous Membranes Moist - Respiratory Exam Respiratory Exam: Clear to Ausculation Bilateral, NORMAL BREATHING PATTERN. absent: Rales, Rhonchi, Wheezes - Cardiovascular Exam Cardiovascular Exam: REGULAR RHYTHM, +S1, +S2 - GI/Abdominal Exam GI & Abdominal Exam: Soft, Normal Bowel Sounds. absent: Distended, Firm, Guarding, Rigid, Tenderness, Rebound - Extremities Exam Extremities Exam: absent: Pedal Edema, Tenderness - Neurological Exam Neurological Exam: Alert, Awake, Oriented x3 - Psychiatric Exam Psychiatric exam: Normal Affect, Normal Mood - Skin Skin Exam: Dry, Intact, Normal Color, Warm Assessment and Plan (1) STEMI (ST elevation myocardial infarction) Status: Acute (2) Coronary artery vasospasm Status: Acute (3) Status post mechanical aortic valve replacement Status: Chronic (4) Aortic stenosis Status: Chronic (5) HTN (hypertension) Status: Chronic (6) Lipid disorder Status: Chronic (7) Prophylactic measure Status: Acute Attending/Attestation - Attestation I have personally seen and examined this patient.: Yes I have fully participated in the care of the patient.: Yes I have reviewed all pertinent clinical information, including history, physical exam and plan: Yes Notes (Text): 1. Chest Pain STEMI Vasospasm Assessment/Plan * Patient was called as code heart on 08/14/17 at [facility] and transferred to [facility] per [facility] heart protocol * labor relations representative (Dr. Jolley) pony edger-->help appreciated * Patient s/p Cardiac Cath 08/14/18 * 1. Normal coronaries ? Distal LAD spasm * 2. No Aortic dissection or aneurysm * Recommend medical management for HTN and Hyperlipidemia * Cardizem 30mg po bid for ? Coronary spasm * For Mechanical Aortic valve recommend ASA 81 daily plus Coumadin for a goal INR of 2-3 * Continue IV Heparic till patient reaches goal INR * Recommend f/u with [facility] for medicine and cardiology * Patient received Aspirin 325mg PO X1, Brilinta 180mg PO X1 and Heparin bolus/heparin drip, and Nitro in the ED. * Chest xray (08/14/18): no active disease. No acute/significant interval changes. * EKG (08/14/18): anterolateral STEMI (1, avl, v4-v6) * Prior cardiac cath (08/29/16): unremarkable coronary circulation, severe aortic stenosis * Prior echo (08/17/16): left atrium mildly dilated, spontaneous contrast in left atrium consistent with low flow state. Spontaneous contrast is seen in the left atrial appendage. Right atrium is mildly dilated. Spontaneous contrast is karla in the right atrium consistent with low flow state. Aortic valve is severely calcified. Severe aortic regurgitation. Severe valvular aortic stenosis * Pending echocardiogram * Heparin drip being transitioned to coumadin * Patient is not a reliable candidate to self-administer lovenox shots at home; reports he will not do it. He will need INR checks. patient is not indicated for NOAC. Patient will need Coumadin. * Aspirin 81mg PO daily * Increase Losartan 100mg PO daily * Lopressor 50mg PO BID * Crestor 20mg POqHS * Start Cardizem 30mg PO BID * UDS: negative except for benzo * hgba1c: 5.6 2. History of Aortic Stenosis s/p Aortic Valve Replacement in 2017 (mechanical) History of noncompliance with anticoagulation post procedure Assessment/Plan * Patient is on heparin drip; will need to be transitioned back to Coumadin to theraputic dosing prior to discharge * Received coumadin 5mg PO last night * Patient is noncompliant and self admits he will not self-administer lovenox shots as he is being bridged nor NOAC is indicated for mechanical aortic valve. 3. Hypokalemia Assessment/Plan * monitor and replete if needed 4. Hypertension, uncontrolled Assessment/Plan * uncontrolled * Losartan 100mg PO Daily * Lopressor 50mg PO BID * Cardizem 30mg PO BID 5. Lipid Disorder Assessment/Plan * Lipid panel: 170 TG, 242 chol, 149 LDL, 57 HDL * Crestor 20mg POqHS 6. Stye over Left Eye Assessment/Plan * Advised to use warm compresses to relieve mild swelling 7. Prophylactic measure * Heparin drip-->Coumadin * GI ppx: pepcid 20mg PO BID Disposition: patient is on telemetry. patient is being bridged from heparin drip to coumadin. patient will not take self administer lovenox shots and admits he will not use it nor NOAC indicated at this time for prophylaxis with mechanical aortic valve. He will need to be transitioned to coumadin and need INR checks.
--- NOTE | 2018-08-17 09:49 | CARD ---
APPROVED REPORT Date of service: 08/15/2018 EXAM: Two-dimensional and M-mode echocardiogram with Doppler and color Doppler. Other Information Quality : AverageRhythm : NSR INDICATION Aortic Valve Disease Dyspnea Congestive Heart Failure RISK FACTORS Hypertension 2D DIMENSIONS IVSd1.5 (0.7-1.1cm)LVDd5.6 (3.9-5.9cm) LVOT Diameter1.7 (1.8-2.4cm)PWd1.2 (0.7-1.1cm) LVDs4.0 (2.5-4.0cm)FS (%) 29.0 % LVEF (%)55.2 (>50%) M-Mode DIMENSIONS Left Atrium (MM)3.63 (2.5-4.0cm)Aortic Root3.01 (2.2-3.7cm) Aortic Valve AoV Peak Adwwnbda683.5cm/Mikey Peak GR.11mmHgLVOT Peak Mahrpxpf37.8cm/s VERNON (VMAX)1.18cm2 Mitral Valve MV E Rbfpfpuv90.4cm/sMV A Rmphgalw41.9cm/sE/A ratio0.7 TDI E/Lateral E'0.0E/Medial E'0.0 Tricuspid Valve TR Peak Namaysra339sb/sTR Peak Gr.[id number] LEFT VENTRICLE The left ventricle is normal size. There is moderate concentric left ventricular hypertrophy. The left ventricular function is normal. The left ventricular ejection fraction is mildly reduced. The apical 4 chamber view is foreshortened, but the inferoapex and apex are akinetic in the apical two chammber view. No regional wall motion abnormalities noted. The left ventricular diastolic function is indeterminate. No left ventricle thrombus noted on this study. There is no ventricular septal defect visualized. There is no left ventricular aneurysm. There is no mass noted in the left ventricle. RIGHT VENTRICLE The right ventricle is normal size. There is normal right ventricular wall thickness. The right ventricular systolic function is normal. ATRIA The left atrium size is normal. The right atrium size is normal. The interatrial septum is intact with no evidence for an atrial septal defect. AORTIC VALVE A bio-prosthetic arotic valve is noted. Peak gradient is 12 mm Hg, but visually, valve opening appears reduced and doppler assessment of the valve is inadequate. No refuregitation or leak is noted. No aortic regurgitation is present. MITRAL VALVE The mitral valve is normal in structure and function. There is no evidence of mitral valve prolapse. There is no mitral valve stenosis. There is no mitral valve regurgitation noted. TRICUSPID VALVE The tricuspid valve is normal in structure and function. There is no tricuspid valve regurgitation noted. There is no tricuspid valve prolapse or vegetation. There is no tricuspid valve stenosis. PULMONIC VALVE The pulmonary valve is normal in structure and function. There is no pulmonic valvular regurgitation. There is no pulmonic valvular stenosis. GREAT VESSELS The aortic root is normal in size. The ascending aorta is normal in size. The pulmonary artery is normal. not seen PERICARDIAL EFFUSION The pericardium appears normal. There is no pleural effusion. <Conclusion> The left ventricular function is normal. The left ventricular ejection fraction is mildly reduced. The apical 4 chamber view is foreshortened, but the inferoapex and apex are akinetic in the apical two chammber view. There is moderate concentric left ventricular hypertrophy. A bio-prosthetic arotic valve is noted. Peak gradient is 12 mm Hg, but visually, valve opening appears reduced and doppler assessment of the valve is inadequate. No refuregitation or leak is noted.
[2018-08-18] MEDS: Heparin25000 units/250ml 1/2NS 25,000 UNITS/250 ML BAG IV PRN (03:20)
[2018-08-18 06:38] LABS: BASO % 0.4 % (0.0-2.0); EOS # 0.1 K/uL (0.0-0.7); EOS % 0.5 % (0.0-4.0); HEMOGLOBIN 14.9 g/dL (12.0-18.0); LYMPH # 1.8 K/uL (1.0-4.3); LYMPH % 18.3 % (20.0-40.0); MEAN CELL VOLUME 94.8 fL (80.0-94.0); MEAN CORPUSCULAR HGB CONC 33.7 g/dL (33.0-37.0); MEAN PLATELET VOLUME 9.2 fL (7.2-11.7); MONO # 0.9 K/uL (0.0-0.8); MONO % 9.2 % (0.0-10.0); NEUT # 7.2 K/uL (1.8-7.0); NEUT % 71.6 % (50.0-75.0); RBC 4.66 Mil/uL (4.40-5.90); RED CELL DISTRIBUTION WIDTH 13.2 % (11.5-14.5)
[2018-08-18 06:54] LABS: INR 1.6; PROTHROMBIN TIME 17.6 SECONDS (9.7-12.2)
[2018-08-18 07:16] LABS: ALB/GLOB RATIO 1.4 (1.0-2.1); ALBUMIN 4.7 g/dL (3.5-5.0); ALT/SGPT 45 U/L (21-72); AST/SGOT 87 U/L (17-59); BLOOD UREA NITROGEN 21 mg/dL (9-20); CALCIUM 9.4 mg/dl (8.6-10.4); GFR NON-AFRICAN AMERICAN > 60
--- NOTE | 2018-08-18 14:30 | CP.PCM.PN ---
<Fred Cavazos - Last Filed: 08/18/18 14:46> Subjective - Date & Time of Evaluation Date of Evaluation: 08/18/18 Time of Evaluation: 09:00 - Subjective Subjective: PGY-[address] Mccormick service Patient is seen and examined sitting in chair. Patient admits to pressure pain on left side of rib cage, 4/10, comes and goes, at worst with movement, as well as pain in the left scapula area and shoulders. Patient denies sharp chest pain in middle of chest, and no radiation to arm or other areas. Patient denies any fever, chills, headaches, dizziness, weakness, abdominal pain, n/v/d/c or urinary symptoms, or lower extremity swelling or pain. Objective - Vital Signs/Intake and Output Vital Signs (last 24 hours): Temp Pulse Resp BP Pulse Ox 98.3 F 89 18 123/64 100 08/18/18 12:00 08/18/18 10:00 08/18/18 10:00 08/18/18 10:00 08/18/18 10:00 Intake and Output: 08/18/18 08/18/18 06:59 18:59 Intake Total 423.0 778.8 Output Total 900 381 Balance -477.0 397.8 - Medications Medications: Current Medications Acetaminophen (Tylenol 325mg Tab) 650 mg PO Q6 PRN PRN Reason: Fever >100.4 F Aspirin (Ecotrin) 81 mg PO DAILY [facility] Last Admin: 08/18/18 10:14 Dose: 81 mg Cyclobenzaprine HCl (Flexeril) 5 mg PO ONCE PRN PRN Reason: Pain, moderate (4-7) Last Admin: 08/18/18 13:17 Dose: 5 mg Diltiazem HCl (Cardizem) 30 mg PO BID [facility] Last Admin: 08/18/18 10:14 Dose: 30 mg Famotidine (Pepcid) 20 mg PO BID [facility] Last Admin: 08/18/18 10:14 Dose: 20 mg Heparin Sodium/Sodium Chloride (Heparin 08446 Units/250ml 1/2 Normal Saline) 25,000 units in 250 mls @ 9.648 mls/hr IV .Q24H PRN; Protocol PRN Reason: ADJUST RATE PER PROTOCOL Last Admin: 08/18/18 03:20 Dose: 12 units/kg/hr, 9.648 mls/hr Losartan Potassium (Cozaar) 100 mg PO DAILY [facility] Last Admin: 08/18/18 10:14 Dose: 100 mg Metoprolol Tartrate (Lopressor) 50 mg PO BID [facility] Last Admin: 08/18/18 10:14 Dose: 50 mg Rosuvastatin Calcium (Crestor) 20 mg PO HS [facility] Last Admin: 08/17/18 21:08 Dose: 20 mg Warfarin Sodium (Coumadin) 5 mg PO 1800 [facility] Stop: 08/18/18 18:01 - Labs Labs: 08/18/18 06:35 08/18/18 06:35 PT 17.6 SECONDS (9.7-12.2) H 08/18/18 06:35 INR 1.6 08/18/18 06:35 APTT 60 SECONDS (21-34) H 08/18/18 07:08 - Constitutional Appears: Non-toxic, No Acute Distress - Head Exam Head Exam: ATRAUMATIC - Eye Exam Eye Exam: EOMI, Normal appearance - ENT Exam ENT Exam: Mucous Membranes Moist, Normal Exam - Neck Exam Neck Exam: Full ROM, Normal Inspection - Respiratory Exam Respiratory Exam: Chest Wall Tenderness (to palpation on lateral left side of chest ), Clear to Ausculation Bilateral, NORMAL BREATHING PATTERN. absent: Decreased Breath Sounds, Rhonchi, Wheezes - Cardiovascular Exam Cardiovascular Exam: REGULAR RHYTHM, +S1, +S2 - GI/Abdominal Exam GI & Abdominal Exam: Soft, Normal Bowel Sounds. absent: Distended, Tenderness - Extremities Exam Extremities Exam: Full ROM, Normal Inspection. absent: Pedal Edema, Tenderness - Back Exam Back Exam: Full ROM, NORMAL INSPECTION. absent: tenderness - Neurological Exam Neurological Exam: Alert, Awake, Normal Gait, Oriented x3 - Psychiatric Exam Psychiatric exam: Normal Affect, Normal Mood - Skin Skin Exam: Dry, Intact, Normal Color, Warm Assessment and Plan - Assessment and Plan (Free Text) Plan: 1. Chest Pain STEMI Vasospasm Assessment/Plan * Patient was called as code heart on 08/14/17 at [facility] and transferred to [facility] per code heart protocol * developer architect (Dr. Jolley) director loss prevention-->help appreciated * Patient s/p Cardiac Cath 08/14/18 * 1. Normal coronaries ? Distal LAD spasm * 2. No Aortic dissection or aneurysm * Recommend medical management for HTN and Hyperlipidemia * Cardizem 30mg po bid for ? Coronary spasm * For Mechanical Aortic valve recommend ASA 81 daily plus Coumadin for a goal INR of 2-3 * Continue IV Heparic till patient reaches goal INR * Recommend f/u with [facility] for medicine and cardiology * Patient received Aspirin 325mg PO X1, Brilinta 180mg PO X1 and Heparin bolus/heparin drip, and Nitro in the ED. * Chest xray (08/14/18): no active disease. No acute/significant interval changes. * EKG (08/14/18): anterolateral STEMI (1, avl, v4-v6) * Prior cardiac cath (08/29/16): unremarkable coronary circulation, severe aortic stenosis * Prior echo (08/17/16): left atrium mildly dilated, spontaneous contrast in left atrium consistent with low flow state. Spontaneous contrast is seen in the left atrial appendage. Right atrium is mildly dilated. Spontaneous contrast is karla in the right atrium consistent with low flow state. Aortic valve is severely calcified. Severe aortic regurgitation. Severe valvular aortic stenosis * Pending echocardiogram 08/17/2018- left ventricular function is normal, left ventricular ejection fraction is mildly reduced, apical 4 chamber view is foreshortened, but inferoapex and apex are akinetic in apical two chamber view. no concentric left ventricular hypertrophy. bio-prosthetic aortic valved noted, valve opening appears reduced and doppler assessment of valve is inadequate. * Heparin drip being transitioned to coumadin * Coumadin 5mg PO @ 18:00 * INR of 2-3 for mechanical aortic valve * 08/18/18 - INR 1.6, from previous day 1.4 * will continue to monitor INR * Patient will need weekly INR checks outpatient - will set up for clinics, as well as home INR checks * Patient is not a reliable candidate to self-administer lovenox shots at home; reports he will not do it. He will need INR checks. patient is not indicated for NOAC. Patient will need Coumadin. * Aspirin 81mg PO daily * Losartan 100mg PO daily * Lopressor 50mg PO BID * Crestor 20mg POqHS * Cardizem 30mg PO BID * UDS: negative except for benzo * hgba1c: 5.6 2. History of Aortic Stenosis s/p Aortic Valve Replacement in 2017 (mechanical) History of noncompliance with anticoagulation post procedure Assessment/Plan * Patient is on heparin drip; will need to be transitioned back to Coumadin to theraputic dosing prior to discharge * Received coumadin 5mg PO last night * INR of 2-3 for mechanical aortic valve * 08/18/18 - INR 1.6, from previous day 1.4 * Patient is noncompliant and self admits he will not self-administer lovenox shots as he is being bridged nor NOAC is indicated for mechanical aortic valve. 3. Hypokalemia Assessment/Plan * Potasium 4.4 today * continue to monitor and replete if needed 4. Hypertension, uncontrolled Assessment/Plan * BP today 125/71 * Losartan 100mg PO Daily * Lopressor 50mg PO BID * Cardizem 30mg PO BID 5. Lipid Disorder Assessment/Plan * Lipid panel: 170 TG, 242 chol, 149 LDL, 57 HDL * Crestor 20mg POqHS 6. Stye over Left Eye Assessment/Plan * Advised to use warm compresses to relieve mild swelling 7. Left side intercostal pain * flexeril 5mg PO ONCE PRN * Tylenol 650mg PO Q6H PRN * encourage hydration 7. Prophylactic measure * Heparin drip-->Coumadin * GI ppx: pepcid 20mg PO BID Disposition: patient is on telemetry. patient is being bridged from heparin drip to coumadin. patient will not take self administer lovenox shots and admits he will not use it nor NOAC indicated at this time for prophylaxis with mechanical aortic valve. He will need to be transitioned to coumadin and need INR checks. We will continue to follow with SW and patient to schedule outpatient INR lab checks both in nearby clinic (as patient's PMD is not in the area) and at home. Plan discussed with Dr Anny Cavazos, PGY-1 <Alexsandra Mccormick V - Last Filed: 08/23/18 17:21> Objective - Vital Signs/Intake and Output Vital Signs (last 24 hours): Temp Pulse Resp BP Pulse Ox 98.7 F 66 20 131/79 97 08/22/18 09:04 08/22/18 09:04 08/22/18 09:04 08/22/18 09:04 08/22/18 09:04 - Labs Labs: 08/22/18 08:03 08/22/18 08:03 PT 37.6 SECONDS (9.7-12.2) H D 08/22/18 08:03 INR 3.4 H* D 08/22/18 08:03 APTT 38 SECONDS (21-34) H D 08/22/18 08:03 Assessment and Plan (1) STEMI (ST elevation myocardial infarction) Status: Acute (2) Coronary artery vasospasm Status: Acute (3) Status post mechanical aortic valve replacement Status: Chronic (4) Aortic stenosis Status: Chronic (5) HTN (hypertension) Status: Chronic (6) Lipid disorder Status: Chronic (7) Prophylactic measure Status: Acute Attending/Attestation - Attestation I have personally seen and examined this patient.: Yes I have fully participated in the care of the patient.: Yes I have reviewed all pertinent clinical information, including history, physical exam and plan: Yes Notes (Text): This is late computer entry for 08/18/18. Patient seen, examined and case discussed with day-time resident. Patient is comfortable noting rib pain and costochondritis. Enteric coated naproxen not available on hospital formulary. Ordered for one time dose on Flexeril and NSAID. Patient is on Heparin drip to Coumadin for aortic valve replacement. Patient is not therapeutic INR. Patient does not want to take self injection of Lovenox. Patient to be ordered for Coumadin tonight and f/u INR in AM.
[2018-08-19] MEDS: Heparin25000 units/250ml 1/2NS 25,000 UNITS/250 ML BAG IV PRN (05:15)
[2018-08-19 06:00] LABS: BASO % 0.5 % (0.0-2.0); EOS # 0.1 K/uL (0.0-0.7); EOS % 1.8 % (0.0-4.0); HEMOGLOBIN 14.3 g/dL (12.0-18.0); LYMPH # 1.9 K/uL (1.0-4.3); LYMPH % 31.6 % (20.0-40.0); MEAN CELL VOLUME 95.2 fL (80.0-94.0); MEAN CORPUSCULAR HEMOGLOBIN 32.3 pg (27.0-31.0); MEAN PLATELET VOLUME 9.5 fL (7.2-11.7); MONO # 0.8 K/uL (0.0-0.8); MONO % 12.9 % (0.0-10.0); NEUT # 3.2 K/uL (1.8-7.0); NEUT % 53.2 % (50.0-75.0); RBC 4.43 Mil/uL (4.40-5.90); RED CELL DISTRIBUTION WIDTH 13.1 % (11.5-14.5)
[2018-08-19 06:24] LABS: BLOOD UREA NITROGEN 23 mg/dL (9-20); GFR NON-AFRICAN AMERICAN > 60
[2018-08-19 06:25] LABS: ALB/GLOB RATIO 1.4 (1.0-2.1); ALBUMIN 4.6 g/dL (3.5-5.0); ALT/SGPT 47 U/L (21-72); AST/SGOT 62 U/L (17-59); CALCIUM 9.3 mg/dl (8.6-10.4)
--- NOTE | 2018-08-19 07:03 | CP.PCM.PN ---
Subjective - Date & Time of Evaluation Date of Evaluation: 08/19/18 Time of Evaluation: 07:00 - Subjective Subjective: PGY-[address] Wagoner service Patient is seen and examined sitting in chair. Patient states he feels well and has no complaints at this time. Patient denies any chest pain, shortness of breath, fever, chills, headaches, dizziness, weakness, abdominal pain, n/v/d/c or urinary symptoms, or lower extremity swelling or pain. Objective - Vital Signs/Intake and Output Vital Signs (last 24 hours): Temp Pulse Resp BP Pulse Ox 97.9 F 66 17 126/73 98 08/19/18 06:00 08/19/18 05:55 08/19/18 05:55 08/19/18 05:55 08/19/18 06:00 Intake and Output: 08/18/18 08/19/18 18:59 06:59 Intake Total 1358.8 662.8 Output Total 1661 Balance -302.2 662.8 - Medications Medications: Current Medications Acetaminophen (Tylenol 325mg Tab) 650 mg PO Q6 PRN PRN Reason: Fever >100.4 F Aspirin (Ecotrin) 81 mg PO DAILY [facility] Last Admin: 08/18/18 10:14 Dose: 81 mg Cyclobenzaprine HCl (Flexeril) 5 mg PO ONCE PRN PRN Reason: Pain, moderate (4-7) Last Admin: 08/18/18 13:17 Dose: 5 mg Diltiazem HCl (Cardizem) 30 mg PO BID [facility] Last Admin: 08/18/18 17:24 Dose: 30 mg Famotidine (Pepcid) 20 mg PO BID [facility] Last Admin: 08/18/18 17:24 Dose: 20 mg Heparin Sodium/Sodium Chloride (Heparin 50294 Units/250ml 1/2 Normal Saline) 25,000 units in 250 mls @ 9.648 mls/hr IV .Q24H PRN; Protocol PRN Reason: ADJUST RATE PER PROTOCOL Last Admin: 08/19/18 05:15 Dose: 12 units/kg/hr, 9.648 mls/hr Losartan Potassium (Cozaar) 100 mg PO DAILY [facility] Last Admin: 08/18/18 10:14 Dose: 100 mg Metoprolol Tartrate (Lopressor) 50 mg PO BID [facility] Last Admin: 08/18/18 17:24 Dose: 50 mg Rosuvastatin Calcium (Crestor) 20 mg PO HS [facility] Last Admin: 08/18/18 22:04 Dose: 20 mg - Labs Labs: 08/19/18 05:57 08/19/18 05:57 PT 17.6 SECONDS (9.7-12.2) H 08/18/18 06:35 INR 1.6 08/18/18 06:35 APTT 75 SECONDS (21-34) H D 08/19/18 05:57 - Additional Findings Additional findings: - Constitutional Appears: Non-toxic, No Acute Distress - Head Exam Head Exam: ATRAUMATIC - Eye Exam Eye Exam: EOMI, Normal appearance - ENT Exam ENT Exam: Mucous Membranes Moist, Normal Exam - Neck Exam Neck Exam: Full ROM, Normal Inspection - Respiratory Exam Respiratory Exam: Clear to Ausculation Bilateral, NORMAL BREATHING PATTERN. absent: Decreased Breath Sounds, Rhonchi, Wheezes - Cardiovascular Exam Cardiovascular Exam: REGULAR RHYTHM, +S1, +S2 - GI/Abdominal Exam GI & Abdominal Exam: Soft, Normal Bowel Sounds. absent: Distended, Tenderness - Extremities Exam Extremities Exam: Full ROM, Normal Inspection. absent: Pedal Edema, Tenderness - Back Exam Back Exam: Full ROM, NORMAL INSPECTION. absent: tenderness - Neurological Exam Neurological Exam: Alert, Awake, Oriented x3 - Skin Skin Exam: Dry, Intact, Normal Color, Warm Assessment and Plan - Assessment and Plan (Free Text) Plan: 1. Chest Pain STEMI Vasospasm * Patient was called as code heart on 08/14/17 at [facility] and transferred to [facility] * director of rehabilitation and wellness (Dr. Jolley) communications assistant-->help appreciated * Patient s/p Cardiac Cath 08/14/18 * 1. Normal coronaries ? Distal LAD spasm * 2. No Aortic dissection or aneurysm * Recommend medical management for HTN and Hyperlipidemia * Cardizem 30mg po bid for ? Coronary spasm * For Mechanical Aortic valve recommend ASA 81 daily plus Coumadin for a goal INR of 2-3 * Continue IV Heparic till patient reaches goal INR * Recommend f/u with [facility] for medicine and cardiology * Patient received Aspirin 325mg PO X1, Brilinta 180mg PO X1 and Heparin bolus/heparin drip, and Nitro in the ED. * Chest xray (08/14/18): no active disease. No acute/significant interval changes. * EKG (08/14/18): anterolateral STEMI (1, avl, v4-v6) * Prior cardiac cath (08/29/16): unremarkable coronary circulation, severe aortic stenosis * Prior echo (08/17/16): left atrium mildly dilated, spontaneous contrast in left atrium consistent with low flow state. Spontaneous contrast is seen in the left atrial appendage. Right atrium is mildly dilated. Spontaneous contrast is karla in the right atrium consistent with low flow state. Aortic valve is severely calcified. Severe aortic regurgitation. Severe valvular aortic stenosis * Pending echocardiogram 08/17/2018- left ventricular function is normal, left ventricular ejection fraction is mildly reduced, apical 4 chamber view is foreshortened, but inferoapex and apex are akinetic in apical two chamber view. no concentric left ventricular hypertrophy. bio-prosthetic aortic valved noted, valve opening appears reduced and doppler assessment of valve is inadequate. * Heparin drip being transitioned to coumadin * Coumadin 5mg PO @ 18:00 * INR of 2-3 for mechanical aortic valve * 08/18/18 - INR 1.6, from previous day 1.4 * will continue to monitor INR * Patient will need weekly INR checks outpatient - will set up for clinics, as well as home INR checks * Patient is not a reliable candidate to self-administer lovenox shots at home; reports he will not do it. He will need INR checks. patient is not indicated for NOAC. Patient will need Coumadin. * Aspirin 81mg PO daily * Losartan 100mg PO daily * Lopressor 50mg PO BID * Crestor 20mg POqHS * Cardizem 30mg PO BID * UDS: negative except for benzo * hgba1c: 5.6 2. History of Aortic Stenosis s/p Aortic Valve Replacement in 2017 (mechanical) History of noncompliance with anticoagulation post procedure * Patient is on heparin drip; will need to be transitioned back to Coumadin to theraputic dosing prior to discharge * Received coumadin 5mg PO last night * INR of 2-3 for mechanical aortic valve * 08/18/18 - INR 1.6, from previous day 1.4 * Patient is noncompliant and self admits he will not self-administer lovenox shots as he is being bridged nor NOAC is indicated for mechanical aortic valve. 3. Hypokalemia * Potasium 4.4 today * continue to monitor and replete if needed 4. Hypertension, uncontrolled * BP today 125/71 * Losartan 100mg PO Daily * Lopressor 50mg PO BID * Cardizem 30mg PO BID 5. Lipid Disorder * Lipid panel: 170 TG, 242 chol, 149 LDL, 57 HDL * Crestor 20mg POqHS 6. Stye over Left Eye * Advised to use warm compresses to relieve mild swelling 7. Left side intercostal pain * flexeril 5mg PO ONCE PRN * Tylenol 650mg PO Q6H PRN * encourage hydration 7. Prophylactic measure * Heparin drip-->Coumadin * GI ppx: pepcid 20mg PO BID Disposition: patient is on telemetry. patient is being bridged from heparin drip to coumadin. patient will not take self administer lovenox shots and admits he will not use it nor NOAC indicated at this time for prophylaxis with mechanical aortic valve. He will need to be transitioned to coumadin and need INR checks. As per , home INR checks will not be possible, as well as unlikely to find an outpatient clinic that will be able to provide INR lab results on same day. Patient will likely need to stay in hospital until INR is therapeutic.
[2018-08-19 12:50] LABS: INR 1.5; PROTHROMBIN TIME 16.3 SECONDS (9.7-12.2)
[2018-08-20] MEDS: Heparin25000 units/250ml 1/2NS 25,000 UNITS/250 ML BAG IV PRN (07:18)
[2018-08-20 07:54] LABS: ALB/GLOB RATIO 1.4 (1.0-2.1); ALBUMIN 4.5 g/dL (3.5-5.0); ALT/SGPT 47 U/L (21-72); AST/SGOT 44 U/L (17-59); BLOOD UREA NITROGEN 22 mg/dL (9-20); CALCIUM 9.5 mg/dl (8.6-10.4); GFR NON-AFRICAN AMERICAN > 60
[2018-08-20 08:19] LABS: BASO % 0.5 % (0.0-2.0); EOS # 0.1 K/uL (0.0-0.7); EOS % 2.4 % (0.0-4.0); HEMOGLOBIN 14.7 g/dL (12.0-18.0); LYMPH # 1.7 K/uL (1.0-4.3); LYMPH % 30.4 % (20.0-40.0); MEAN CELL VOLUME 95.4 fL (80.0-94.0); MEAN CORPUSCULAR HEMOGLOBIN 32.3 pg (27.0-31.0); MEAN CORPUSCULAR HGB CONC 33.9 g/dL (33.0-37.0); MEAN PLATELET VOLUME 10.7 fL (7.2-11.7); MONO # 0.6 K/uL (0.0-0.8); MONO % 11.7 % (0.0-10.0); NRBC % 0.3 % (0.0-2.0); RBC 4.54 Mil/uL (4.40-5.90); WHITE BLOOD COUNT 5.5 K/uL (4.8-10.8)
[2018-08-20 12:43] LABS: INR 1.9; PROTHROMBIN TIME 20.5 SECONDS (9.7-12.2)
--- NOTE | 2018-08-20 12:50 | CP.PCM.PN ---
Subjective - Date & Time of Evaluation Date of Evaluation: 08/20/18 Time of Evaluation: 07:50 - Subjective Subjective: PGY-[address] Wagoner service Patient is seen and examined at bedside. Patient reports doing well this morning, no acute events overnight. Patient states his pain in right side of chest/ribs is now gone. Patient is eating regularly and having bowel movements. Patient denies any other pain. Denies fevers, chills, sob, n/v/d/c or urinary symptoms. Objective - Vital Signs/Intake and Output Vital Signs (last 24 hours): Temp Pulse Resp BP Pulse Ox 97.9 F 72 18 140/84 96 08/20/18 08:30 08/20/18 10:32 08/20/18 08:30 08/20/18 10:32 08/20/18 08:30 Intake and Output: 08/20/18 08/20/18 06:59 18:59 Intake Total 345 250 Balance 345 250 - Medications Medications: Current Medications Acetaminophen (Tylenol 325mg Tab) 650 mg PO Q6 PRN PRN Reason: Fever >100.4 F Aspirin (Ecotrin) 81 mg PO DAILY [facility] Last Admin: 08/20/18 10:33 Dose: 81 mg Cyclobenzaprine HCl (Flexeril) 5 mg PO ONCE PRN PRN Reason: Pain, moderate (4-7) Last Admin: 08/18/18 13:17 Dose: 5 mg Diltiazem HCl (Cardizem) 30 mg PO BID [facility] Last Admin: 08/20/18 10:33 Dose: 30 mg Famotidine (Pepcid) 20 mg PO BID [facility] Last Admin: 08/20/18 10:33 Dose: 20 mg Heparin Sodium/Sodium Chloride (Heparin 08966 Units/250ml 1/2 Normal Saline) 25,000 units in 250 mls @ 9.648 mls/hr IV .Q24H PRN; Protocol PRN Reason: ADJUST RATE PER PROTOCOL Last Admin: 08/20/18 07:18 Dose: 12 units/kg/hr, 9.648 mls/hr Losartan Potassium (Cozaar) 100 mg PO DAILY [facility] Last Admin: 08/20/18 10:33 Dose: 100 mg Metoprolol Tartrate (Lopressor) 50 mg PO BID [facility] Last Admin: 08/20/18 10:33 Dose: 50 mg Rosuvastatin Calcium (Crestor) 20 mg PO HS [facility] Last Admin: 08/19/18 21:07 Dose: 20 mg Warfarin Sodium (Coumadin) 10 mg PO 1800 [facility] Stop: 08/20/18 18:01 - Labs Labs: 08/20/18 07:07 08/20/18 07:07 PT 20.5 SECONDS (9.7-12.2) H 08/20/18 12:23 INR 1.9 08/20/18 12:23 APTT 75 SECONDS (21-34) H D 08/19/18 05:57 - Constitutional Appears: Well, Non-toxic, No Acute Distress - Head Exam Head Exam: ATRAUMATIC, NORMAL INSPECTION, NORMOCEPHALIC - Eye Exam Eye Exam: EOMI, Normal appearance - ENT Exam ENT Exam: Mucous Membranes Moist, Normal Exam - Neck Exam Neck Exam: Normal Inspection - Respiratory Exam Respiratory Exam: Clear to Ausculation Bilateral, NORMAL BREATHING PATTERN. absent: Rales, Rhonchi, Wheezes - Cardiovascular Exam Cardiovascular Exam: Clicks, REGULAR RHYTHM, +S1, +S2 - GI/Abdominal Exam GI & Abdominal Exam: Soft, Normal Bowel Sounds. absent: Distended, Tenderness - Extremities Exam Extremities Exam: Full ROM, Normal Capillary Refill, Normal Inspection - Back Exam Back Exam: Full ROM, NORMAL INSPECTION - Neurological Exam Neurological Exam: Alert, Awake, Oriented x3 - Psychiatric Exam Psychiatric exam: Normal Affect, Normal Mood - Skin Skin Exam: Dry, Intact, Normal Color, Warm Assessment and Plan - Assessment and Plan (Free Text) Plan: 1. 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 Normal coronaries ? Distal LAD spasm * 2. No Aortic dissection or aneurysm * Recommend medical management for HTN and Hyperlipidemia * Cardizem 30mg po bid for ? Coronary spasm * For Mechanical Aortic valve recommend ASA 81 daily plus Coumadin for a goal INR of 2-3 * Continue IV Heparic till patient reaches goal INR * Recommend f/u with [facility] for medicine and cardiology * Patient received Aspirin 325mg PO X1, Brilinta 180mg PO X1 and Heparin bolus/heparin drip, and Nitro in the ED. * Chest xray (08/14/18): no active disease. No acute/significant interval changes. * EKG (08/14/18): anterolateral STEMI (1, avl, v4-v6) * Prior cardiac cath (08/29/16): unremarkable coronary circulation, severe aortic stenosis * Prior echo (08/17/16): left atrium mildly dilated, spontaneous contrast in left atrium consistent with low flow state. Spontaneous contrast is seen in the left atrial appendage. Right atrium is mildly dilated. Spontaneous contrast is karla in the right atrium consistent with low flow state. Aortic valve is severely calcified. Severe aortic regurgitation. Severe valvular aortic stenosis * echocardiogram 08/17/2018- left ventricular function is normal, left ventricular ejection fraction is mildly reduced, apical 4 chamber view is for eshortened, but inferoapex and apex are akinetic in apical two chamber view. no concentric left ventricular hypertrophy. bio-prosthetic aortic valved noted, valve opening appears reduced and doppler assessment of valve is inadequate. * Heparin drip being transitioned to coumadin * Coumadin 10mg PO given 08/19 @ 18:00 * Goal: INR of 2.5-3.5 for mechanical aortic valve * 08/20/18 INR - 1.9 from 1.5 * Coumadin 10mg PO 08/20 @ 18:00, will continue heparin drip * f/u morning INR, PT/PTT * will continue to monitor INR- once goal is reached, patient to be on coumadin PO for 24 hours before being d/c * Patient will need weekly INR checks outpatient - will set up for clinics, as well as home INR checks * Patient is not a reliable candidate to self-administer lovenox shots at home; reports he will not do it. He will need INR checks. patient is not indicated for NOAC. Patient will need Coumadin. * Aspirin 81mg PO daily * Losartan 100mg PO daily * Lopressor 50mg PO BID * Crestor 20mg POqHS * Cardizem 30mg PO BID 2. History of Aortic Stenosis s/p Aortic Valve Replacement in 2017 (mechanical) History of noncompliance with anticoagulation post procedure * Patient is on heparin drip; will need to be transitioned back to Coumadin to theraputic dosing prior to discharge * INR of 2.5-3.5 for mechanical aortic valve * Heparin drip being transitioned to coumadin * Coumadin 10mg PO given 08/19 @ 18:00 * Goal: INR of 2.5-3.5 for mechanical aortic valve * 08/20/18 INR - 1.9 from 1.5 * Coumadin 10mg PO 08/20 @ 18:00, will continue heparin drip until goal is reached * f/u morning INR, PT/PTT * will continue to monitor INR- once goal is reached, patient to be on coum amadou PO for 24 hours before being d/c * Patient will need weekly INR checks outpatient - will set up for clinics, as well as home INR checks * Patient is not a reliable candidate to self-administer lovenox shots at home; reports he will not do it. He will need INR checks. patient is not indicated for NOAC. Patient will need Coumadin. 3. Hypokalemia, resolved * Potasium 4.5 today * continue to monitor and replete if needed 4. Hypertension, uncontrolled * BP today 170/96 - came down to 113/71 in the afternoon * Losartan 100mg PO Daily * Lopressor 50mg PO BID * Cardizem 30mg PO BID * continue to monitor bp 5. Lipid Disorder * Lipid panel: 170 TG, 242 chol, 149 LDL, 57 HDL * Crestor 20mg POqHS 6. Stye over Left Eye * Advised to continue warm compresses as needed to relieve mild swelling 7. Left side intercostal pain * flexeril 5mg PO ONCE PRN * Tylenol 650mg PO Q6H PRN * encourage hydration 7. Prophylactic measure * Heparin drip-->Coumadin * GI ppx: pepcid 20mg PO BID * HHD Disposition: Patient continues to be bridged from heparin to coumadin. INR goal 2.5-3.5. daily INR checks. Once INR goal reached, patient to be on coumadin 24 hours before D/C .Follow up with for arrangements of INR checks as outpatient with either [facility] or [facility] before D/C from hospital. Plan discussed with Dr Ciaran Cavazos, PGY-1
[2018-08-20 15:41] VITALS: RESP 20
--- NOTE | 2018-08-21 07:46 | CP.PCM.PN ---
Subjective - Date & Time of Evaluation Date of Evaluation: 08/21/18 Time of Evaluation: 07:45 - Subjective Subjective: PGY-[address] Wagoner service Patient is seen and examined at bedside. No acute events overnight. Patient denies any complaints at this time. Patient is eating well, voiding, and having bowel movements. Denies fevers, chills, sob, n/v/d/c or urinary symptoms. Objective - Vital Signs/Intake and Output Vital Signs (last 24 hours): Temp Pulse Resp BP Pulse Ox 97.9 F 56 L 20 122/80 98 08/21/18 00:00 08/21/18 04:00 08/21/18 00:00 08/21/18 00:00 08/21/18 00:00 Intake and Output: 08/21/18 08/21/18 06:59 18:59 Intake Total 708 Balance 708 - Medications Medications: Current Medications Acetaminophen (Tylenol 325mg Tab) 650 mg PO Q6 PRN PRN Reason: Fever >100.4 F Aspirin (Ecotrin) 81 mg PO DAILY [facility] Last Admin: 08/20/18 10:33 Dose: 81 mg Cyclobenzaprine HCl (Flexeril) 5 mg PO ONCE PRN PRN Reason: Pain, moderate (4-7) Last Admin: 08/18/18 13:17 Dose: 5 mg Diltiazem HCl (Cardizem) 30 mg PO BID [facility] Last Admin: 08/20/18 17:16 Dose: 30 mg Famotidine (Pepcid) 20 mg PO BID [facility] Last Admin: 08/20/18 17:17 Dose: 20 mg Heparin Sodium/Sodium Chloride (Heparin 60235 Units/250ml 1/2 Normal Saline) 25,000 units in 250 mls @ 9.648 mls/hr IV .Q24H PRN; Protocol PRN Reason: ADJUST RATE PER PROTOCOL Last Admin: 08/20/18 07:18 Dose: 12 units/kg/hr, 9.648 mls/hr Losartan Potassium (Cozaar) 100 mg PO DAILY [facility] Last Admin: 08/20/18 10:33 Dose: 100 mg Metoprolol Tartrate (Lopressor) 50 mg PO BID [facility] Last Admin: 08/20/18 17:17 Dose: 50 mg Rosuvastatin Calcium (Crestor) 20 mg PO HS [facility] Last Admin: 08/20/18 21:06 Dose: Not Given - Labs Labs: 08/20/18 07:07 08/20/18 07:07 PT 20.5 SECONDS (9.7-12.2) H 08/20/18 12:23 INR 1.9 08/20/18 12:23 APTT 75 SECONDS (21-34) H 08/20/18 16:39 - Additional Findings Additional findings: - Constitutional Appears: Well, Non-toxic, No Acute Distress - Head Exam Head Exam: ATRAUMATIC, NORMAL INSPECTION, NORMOCEPHALIC - Eye Exam Eye Exam: EOMI, Normal appearance - ENT Exam ENT Exam: Mucous Membranes Moist, Normal Exam - Neck Exam Neck Exam: Normal Inspection - Respiratory Exam Respiratory Exam: Clear to Ausculation Bilateral, NORMAL BREATHING PATTERN. absent: Rales, Rhonchi, Wheezes - Cardiovascular Exam Cardiovascular Exam: Clicks, REGULAR RHYTHM, +S1, +S2 - GI/Abdominal Exam GI & Abdominal Exam: Soft, Normal Bowel Sounds. absent: Distended, Tenderness - Extremities Exam Extremities Exam: Full ROM, Normal Capillary Refill, Normal Inspection - Back Exam Back Exam: Full ROM, NORMAL INSPECTION - Neurological Exam Neurological Exam: Alert, Awake, Oriented x3 - Skin Skin Exam: Dry, Intact, Normal Color, Warm Assessment and Plan - Assessment and Plan (Free Text) Plan: 1. 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 Normal coronaries ? Distal LAD spasm * 2. No Aortic dissection or aneurysm * Recommend medical management for HTN and Hyperlipidemia * Cardizem 30mg po bid for ? Coronary spasm * For Mechanical Aortic valve recommend ASA 81 daily plus Coumadin for a goal INR of 2-3 * Continue IV Heparic till patient reaches goal INR * Recommend f/u with [facility] for medicine and cardiology * Patient received Aspirin 325mg PO X1, Brilinta 180mg PO X1 and Heparin bolus/heparin drip, and Nitro in the ED. * Chest xray (08/14/18): no active disease. No acute/significant interval changes. * EKG (08/14/18): anterolateral STEMI (1, avl, v4-v6) * Prior cardiac cath (08/29/16): unremarkable coronary circulation, severe aortic stenosis * Prior echo (08/17/16): left atrium mildly dilated, spontaneous contrast in left atrium consistent with low flow state. Spontaneous contrast is seen in the left atrial appendage. Right atrium is mildly dilated. Spontaneous contrast is karla in the right atrium consistent with low flow state. Aortic valve is severely calcified. Severe aortic regurgitation. Severe valvular aortic stenosis * echocardiogram 08/17/2018- left ventricular function is normal, left ventricular ejection fraction is mildly reduced, apical 4 chamber view is foreshortened, but inferoapex and apex are akinetic in apical two chamber view. no concentric left ventricular hypertrophy. bio-prosthetic aortic valved noted, valve opening appears reduced and doppler assessment of valve is inadequate. * Heparin drip being transitioned to coumadin * Coumadin 10mg PO given 08/19 @ 18:00 * Goal: INR of 2.5-3.5 for mechanical aortic valve * 08/20/18 INR - 1.9 from 1.5 * Coumadin 10mg PO 08/20 @ 18:00, will continue heparin drip * f/u morning INR, PT/PTT * will continue to monitor INR- once goal is reached, patient to be on coumadin PO for 24 hours before being d/c * Patient will need weekly INR checks outpatient - will set up for clinics, as well as home INR checks * Patient is not a reliable candidate to self-administer lovenox shots at home; reports he will not do it. He will need INR checks. patient is not indicated for NOAC. Patient will need Coumadin. * Aspirin 81mg PO daily * Losartan 100mg PO daily * Lopressor 50mg PO BID * Crestor 20mg POqHS * Cardizem 30mg PO BID 2. History of Aortic Stenosis s/p Aortic Valve Replacement in 2017 (mechanical) History of noncompliance with anticoagulation post procedure * Patient is on heparin drip; will need to be transitioned back to Coumadin to theraputic dosing prior to discharge * INR of 2.5-3.5 for mechanical aortic valve * Heparin drip being transitioned to coumadin * Coumadin 10mg PO given 08/19 @ 18:00 * Goal: INR of 2.5-3.5 for mechanical aortic valve * 08/20/18 INR - 1.9 from 1.5 * Coumadin 10mg PO 08/20 @ 18:00, will continue heparin drip until goal is reached * f/u morning INR, PT/PTT * will continue to monitor INR- once goal is reached, patient to be on coumadin PO for 24 hours before being d/c * Patient will need weekly INR checks outpatient - will set up for clinics, as well as home INR checks * Patient is not a reliable candidate to self-administer lovenox shots at home; reports he will not do it. He will need INR checks. patient is not indicated for NOAC. Patient will need Coumadin. * 08/21 INR 2.4 3. Hypokalemia, resolved * continue to monitor and replete if needed 4. Hypertension, uncontrolled * Losartan 100mg PO Daily * Lopressor 50mg PO BID * Cardizem 30mg PO BID * continue to monitor bp 5. Lipid Disorder * Lipid panel: 170 TG, 242 chol, 149 LDL, 57 HDL * Crestor 20mg POqHS 6. Stye over Left Eye * Advised to continue warm compresses as needed to relieve mild swelling 7. Left side intercostal pain * flexeril 5mg PO ONCE PRN * Tylenol 650mg PO Q6H PRN * encourage hydration 7. Prophylactic measure * Heparin drip-->Coumadin * GI ppx: pepcid 20mg PO BID * HHD Disposition: INR 2.4 today. Heparin d/c'ed. Patient will receive one more dose of coumadin 10mg today and discharged tomorrow. Plan discussed with Dr Ciaran Chavarria, PGY-1
[2018-08-21] MEDS: Heparin25000 units/250ml 1/2NS 25,000 UNITS/250 ML BAG IV PRN (08:10)
[2018-08-21 08:21] LABS: BASO % 0.8 % (0.0-2.0); EOS # 0.1 K/uL (0.0-0.7); EOS % 2.5 % (0.0-4.0); HEMOGLOBIN 14.9 g/dL (12.0-18.0); LYMPH # 1.5 K/uL (1.0-4.3); LYMPH % 33.2 % (20.0-40.0); MEAN CELL VOLUME 94.9 fL (80.0-94.0); MEAN CORPUSCULAR HGB CONC 33.7 g/dL (33.0-37.0); MEAN PLATELET VOLUME 10.3 fL (7.2-11.7); MONO # 0.4 K/uL (0.0-0.8); MONO % 9.6 % (0.0-10.0); NEUT # 2.5 K/uL (1.8-7.0); NEUT % 53.9 % (50.0-75.0); NRBC % 0.2 % (0.0-2.0); RBC 4.67 Mil/uL (4.40-5.90); RED CELL DISTRIBUTION WIDTH 12.8 % (11.5-14.5); WHITE BLOOD COUNT 4.6 K/uL (4.8-10.8)
[2018-08-21 08:39] LABS: INR 2.4
[2018-08-21 08:40] LABS: ALB/GLOB RATIO 1.4 (1.0-2.1); ALBUMIN 4.6 g/dL (3.5-5.0); ALT/SGPT 37 U/L (21-72); AST/SGOT 45 U/L (17-59); BLOOD UREA NITROGEN 23 mg/dL (9-20); CALCIUM 9.5 mg/dl (8.6-10.4); GFR NON-AFRICAN AMERICAN > 60
[2018-08-21] MEDS ORDERED: Heparin25000 units/250ml 1/2NS 25,000 UNITS/250 ML BAG IV PRN (09:00)
--- NOTE | 2018-08-22 00:41 | CP.PCM.DIS ---
Provider - Provider Date of Admission: 08/14/18 15:39 Attending physician: Alexsandra Mccormick DO Consults: 08/14/18 15:31 Cardiology Consult Routine Comment: Consulting Provider: Cadne Jolley Consulting Physician: Caden Jolley Reason for Consult: STEMI 08/14/18 15:46 Case Management Referral Routine Comment: Physician Instructions: Reason For Exam: Reason for Referral: Discharge Planning Time Spent in preparation of Discharge (in minutes): 35 Diagnosis - Discharge Diagnosis (1) Coronary artery vasospasm Status: Acute Hospital Course - Lab Results Lab Results: Micro Results 08/19/18 18:17 Naris MRSA Culture (Admit) - Final MRSA NOT DETECTED 08/14/18 17:05 Nose MRSA Culture (Admit) - Final MRSA NOT DETECTED Most Recent Lab Values WBC 4.6 K/uL (4.8-10.8) L 08/21/18 08:12 RBC 4.67 Mil/uL (4.40-5.90) 08/21/18 08:12 Hgb 14.9 g/dL (12.0-18.0) 08/21/18 08:12 Hct 44.3 % (35.0-51.0) 08/21/18 08:12 MCV 94.9 fL (80.0-94.0) H 08/21/18 08:12 MCH 32.0 pg (27.0-31.0) H 08/21/18 08:12 MCHC 33.7 g/dL (33.0-37.0) 08/21/18 08:12 RDW 12.8 % (11.5-14.5) 08/21/18 08:12 Plt Count 207 K/uL (130-400) 08/21/18 08:12 MPV 10.3 fL (7.2-11.7) 08/21/18 08:12 Neut % (Auto) 53.9 % (50.0-75.0) 08/21/18 08:12 Lymph % (Auto) 33.2 % (20.0-40.0) 08/21/18 08:12 Snyder % (Auto) 9.6 % (0.0-10.0) 08/21/18 08:12 Eos % (Auto) 2.5 % (0.0-4.0) 08/21/18 08:12 Baso % (Auto) 0.8 % (0.0-2.0) 08/21/18 08:12 Neut # (Auto) 2.5 K/uL (1.8-7.0) 08/21/18 08:12 Lymph # (Auto) 1.5 K/uL (1.0-4.3) 08/21/18 08:12 Snyder # (Auto) 0.4 K/uL (0.0-0.8) 08/21/18 08:12 Eos # (Auto) 0.1 K/uL (0.0-0.7) 08/21/18 08:12 Baso # (Auto) 0.0 K/uL (0.0-0.2) 08/21/18 08:12 PT 26.0 SECONDS (9.7-12.2) H D 08/21/18 08:12 INR 2.4 D 08/21/18 08:12 APTT 112 SECONDS (21-34) H* D 08/21/18 08:12 Sodium 140 mmol/L (132-148) 08/21/18 08:12 Potassium 4.4 mmol/L (3.6-5.2) 08/21/18 08:12 Chloride 103 mmol/L (98-107) 08/21/18 08:12 Carbon Dioxide 30 mmol/L (22-30) 08/21/18 08:12 Anion Gap 12 (10-20) 08/21/18 08:12 BUN 23 mg/dL (9-20) H 08/21/18 08:12 Creatinine 1.1 mg/dL (0.8-1.5) 08/21/18 08:12 Est GFR ( Amer) > 60 08/21/18 08:12 Est GFR (Non-Af Amer) > 60 08/21/18 08:12 Random Glucose 93 mg/dL (75-110) 08/21/18 08:12 Hemoglobin A1c 5.6 % (4.2-6.5) 08/14/18 17:55 Calcium 9.5 mg/dl (8.6-10.4) 08/21/18 08:12 Phosphorus 3.8 mg/dL (2.5-4.5) 08/17/18 04:00 Magnesium 2.1 mg/dL (1.6-2.3) 08/17/18 04:00 Total Bilirubin 0.6 mg/dL (0.2-1.3) 08/21/18 08:12 AST 45 U/L (17-59) 08/21/18 08:12 ALT 37 U/L (21-72) 08/21/18 08:12 Alkaline Phosphatase 60 U/L (38-126) 08/21/18 08:12 Total Protein 7.9 g/dL (6.3-8.3) 08/21/18 08:12 Albumin 4.6 g/dL (3.5-5.0) 08/21/18 08:12 Globulin 3.2 gm/dL (2.2-3.9) 08/21/18 08:12 Albumin/Globulin Ratio 1.4 (1.0-2.1) 08/21/18 08:12 Triglycerides 170 mg/dL (0-149) H 08/14/18 17:55 Cholesterol 242 mg/dL (0-199) H 08/14/18 17:55 LDL Cholesterol Direct 149 mg/dL (0-129) H 08/14/18 17:55 HDL Cholesterol 57 mg/dL (30-70) 08/14/18 17:55 TSH 3rd Generation 0.64 mIU/L (0.46-4.68) 08/14/18 17:55 Urine Opiates Screen Negative (NEGATIVE) 08/14/18 20:16 Urine Methadone Screen Negative (NEGATIVE) 08/14/18 20:16 Ur Barbiturates Screen Negative (NEGATIVE) 08/14/18 20:16 Ur Phencyclidine Scrn Negative (NEGATIVE) 08/14/18 20:16 Ur Amphetamines Screen Negative (NEGATIVE) 08/14/18 20:16 U Benzodiazepines Scrn Positive (NEGATIVE) 08/14/18 20:16 U Oth Cocaine Metabols Negative (NEGATIVE) 08/14/18 20:16 U Cannabinoids Screen Negative (NEGATIVE) 08/14/18 20:16 - Hospital Course Hospital Course: 570A On Admission: 53 y/o male with PMHx of HTN and severe aortic stenosis with aortic valve replacement presents s/p code heart and cardiac cath by Dr. Jolley. Patient was in [place] ER and was transferred to [facility] [place] for emergent cardiac cath. Per EMR he had in [place] brilinta 180 mg, nitrostat 0.4 mg, heparin drip, ASA 325 mg. Patient with positive troponin 2.41 in [place]. Before patient was driven to the ER by his sister in law, he was at the gym working out when his chest pain started. Patient states it was a 10/10 pressure that was not relieved with rest. Patient also tried to drink water without relief, but did not immediately take medications at the gym. Of note, patient has significant history of aortic valve stenosis. He had a replacement almost 2 years ago in [facility] in [place]. He states he has a biostatistics manager in [place] whom he has not seen for more than a year. He does not remember his name. Patient does not take any home meds, though he knows he is supposed to be on ASA and coumadin regularly. 08/24/16 ECHO: severe , AV mod to severe thickened. EF wnl 50-55%, mild concentric LVH. 08/29/16 cardiac cath: severe and severe AI Patient still with some chest pain bilateral and radiation to left arm, same quality as at the gym, however less pain. Pain was 10/10 and now decreased to 3/10. Per RN from laboratory development technician, he had SBP 200s and was given labetalol 20 mg IV. Patient also feels lethargic and was also lethargic in the morning before he went to the ED. Also s/p versed and fentanyl from the laboratory development technician. Patient with mild KOHLER. Denies SOB, palpitations, nausea, vomiting, diarrhea. Hospital Course: Code Heart was called for patient on 08/14/17 at [place] ER and transferred to [facility] [place] per [facility] [place]. battery wrecker operator, Dr. Jolley, was consulted and brought patient to the laboratory development technician on 08/14/18. Catheterization was negative and it was determined that patient had an LAD vasospasm. Medical management for HTN and Hyperlipidemia were recommended. Cardizem 30mg po bid was started for Coronary spasm. ASA 81 daily plus Coumadin for a goal INR of 2-3 was recommended for his hx of mechanical aortic valve. Patient was started on Heparin drip and transitioned to coumadin to reach goal INR. Patient's INR was checked daily and coumadin dose adjusted accordingly to reach goal. Chest xray (08/14/18): no active disease. No acute/significant interval changes. EKG (08/14/18): anterolateral STEMI (1, avl, v4-v6) Prior cardiac cath (08/29/16): unremarkable coronary circulation, severe aortic stenosis Prior echo (08/17/16): left atrium mildly dilated, spontaneous contrast in left atrium consistent with low flow state. Spontaneous contrast is seen in the left atrial appendage. Right atrium is mildly dilated. Spontaneous contrast is karla in the right atrium consistent with low flow state. Aortic valve is severely calcified. Severe aortic regurgitation. Severe valvular aortic stenosis echocardiogram 08/17/2018- left ventricular function is normal, left ventricular ejection fraction is mildly reduced, apical 4 chamber view is foreshortened, but inferoapex and apex are akinetic in apical two chamber view. no concentric left ventricular hypertrophy. bio-prosthetic aortic valved noted, valve opening appears reduced and doppler assessment of valve is inadequate. Discharge instructions: Patient is stable for discharge per Dr. Wagoner. Patient should resume all medications as outlined in this document. Additionally, patient should take the new medications listed below (scripts provided). 1. Please make an appointment and follow up with your Primary Doctor within one week of discharge. If patient does not have a Primary Doctor, please follow up with [facility] to establish medical care, at [phone]. 2. Please make an appointment and follow up with your biostatistics manager, Dr. Jolley within one week of discharge. 3. You were hospitalized for a heart attack. Since you have a mechanical aortic valve, you should take blood thinners to maintain your INR between 2.5-3.5; you will need to followup with your PMD to monitor these levels (see medication below). To make sure your medication is at the appropriate level, you will need to check your INR (blood work) at your clinic weekly. This is important to make sure the levels are not too high (increasing your risk for bleeding) or too low (increasing your risk for heart attack and stroke). 4. Please take your medication as prescribed. On a daily basis, you should alternate between Coumadin 5mg and 7.5mg. For example, on Friday take Coumadin 5mg, Friday take coumadin 7.5mg, Friday take coumadin 5mg, so on and so forth. Patient should return to ED immediately if symptoms return or worsen. Instructions discussed with patient who understood and agreed. Newly prescribed medications: Coumadin 5mg oral every day Coumadin 2.5mg oral every other day (for a total of 7.5mg every other day). Aspirin 81mg PO daily Cardizem 30mg PO BID Losartan 100mg PO daily Lopressor 50mg PO BID Crestor 20mg POqHS Discharge Exam - Head Exam Head Exam: ATRAUMATIC, NORMAL INSPECTION, NORMOCEPHALIC - Skin Additional comments: - Constitutional Appears: Well, Non-toxic, No Acute Distress - Head Exam Head Exam: ATRAUMATIC, NORMAL INSPECTION, NORMOCEPHALIC - Eye Exam Eye Exam: EOMI, Normal appearance - ENT Exam ENT Exam: Mucous Membranes Moist, Normal Exam - Neck Exam Neck Exam: Normal Inspection - Respiratory Exam Respiratory Exam: Clear to Ausculation Bilateral, NORMAL BREATHING PATTERN. absent: Rales, Rhonchi, Wheezes - Cardiovascular Exam Cardiovascular Exam: Clicks, REGULAR RHYTHM, +S1, +S2 - GI/Abdominal Exam GI & Abdominal Exam: Soft, Normal Bowel Sounds. absent: Distended, Tenderness - Extremities Exam Extremities Exam: Full ROM, Normal Capillary Refill, Normal Inspection - Back Exam Back Exam: Full ROM, NORMAL INSPECTION - Neurological Exam Neurological Exam: Alert, Awake, Oriented x3 - Skin Skin Exam: Dry, Intact, Normal Color, Warm Discharge Plan - Discharge Medications Prescriptions: Aspirin [Ecotrin] 81 mg PO DAILY #30 tabec diltiaZEM [Cardizem] 30 mg PO BID #60 tab Losartan [Cozaar] 100 mg PO DAILY #30 tab Metoprolol Tartrate [Lopressor] 50 mg PO BID #60 tab Rosuvastatin Calcium [Crestor] 20 mg PO HS #30 tab Warfarin [Coumadin] 2.5 mg PO Q2D #15 tab Warfarin [Coumadin] 5 mg PO DAILY #30 tab - Follow Up Plan Condition: GOOD Disposition: HOME/ ROUTINE Additional Instructions: Patient is stable for discharge per Dr. Wagoner. Patient should resume all medications as outlined in this document. Additionally, patient should take the new medications listed below (scripts provided). 1. Please make an appointment and follow up with your Primary Doctor within one week of discharge. If patient does not have a Primary Doctor, please follow up with [facility] to establish medical care, at [phone]. 2. Please make an appointment and follow up with your biostatistics manager, Dr. Jolley within one week of discharge. 3. You were hospitalized for a heart attack. Since you have a mechanical aortic valve, you should take blood thinners to maintain your INR between 2.5-3.5; you will need to followup with your PMD to monitor these levels (see medication below). To make sure your medication is at the appropriate level, you will need to check your INR (blood work) at your clinic weekly. This is important to make sure the levels are not too high (increasing your risk for bleeding) or too low (increasing your risk for heart attack and stroke). 4. Please take your medication as prescribed. On a daily basis, you should alternate between Coumadin 5mg and 7.5mg. For example, on Friday take Coumadin 5mg, Friday take coumadin 7.5mg, Friday take coumadin 5mg, so on and so forth. Patient should return to ED immediately if symptoms return or worsen. Instructions discussed with patient who understood and agreed. Newly prescribed medications: Coumadin 5mg oral every day Coumadin 2.5mg oral every other day (for a total of 7.5mg every other day). Aspirin 81mg PO daily Cardizem 30mg PO BID Losartan 100mg PO daily Lopressor 50mg PO BID [facility] - CQM - Heart Failure Ejection Fraction: 40 % or Greater Left Ventricular Function to be assessed after discharge: No MANUEL Inhibitor Prescribed: No Contraindication/Reason for not providing: ARB prescribed Beta-Nhan Prescribed: Metoprolol Succinate Angiotensin II Receptor Nhan Prescribed: Yes AnticoagulationTherapy for Atrial Fibrillation/Atrialflutter: Yes Aldosterone Antagonist Prescribed: No Contraindication/Reason for not providing: not indicated Hydralazine Nitrate Prescribed: No Contraindication/Reason for not providing: not indicated Implantable Cardioverter Defibrillator Therapy: No Contraindication/Reason for not providing: not indicated Cardiac Resynchronization Therapy Prescribed: No Contraindication/Reason for not providing: not indicated Will be discharged to: Home Follow Up Date (must be within 7 days from discharge): 08/29/18 Follow Up Time: 08:00
[2018-08-22 08:36] LABS: BASO % 0.6 % (0.0-2.0); EOS # 0.1 K/uL (0.0-0.7); EOS % 2.3 % (0.0-4.0); HEMOGLOBIN 14.8 g/dL (12.0-18.0); LYMPH # 1.4 K/uL (1.0-4.3); LYMPH % 30.1 % (20.0-40.0); MEAN CELL VOLUME 94.3 fL (80.0-94.0); MEAN CORPUSCULAR HEMOGLOBIN 32.4 pg (27.0-31.0); MEAN CORPUSCULAR HGB CONC 34.3 g/dL (33.0-37.0); MEAN PLATELET VOLUME 9.5 fL (7.2-11.7); MONO # 0.4 K/uL (0.0-0.8); MONO % 9.4 % (0.0-10.0); NEUT # 2.7 K/uL (1.8-7.0); NEUT % 57.6 % (50.0-75.0); RBC 4.56 Mil/uL (4.40-5.90); RED CELL DISTRIBUTION WIDTH 12.9 % (11.5-14.5); WHITE BLOOD COUNT 4.6 K/uL (4.8-10.8)
[2018-08-22 08:52] LABS: ALB/GLOB RATIO 1.4 (1.0-2.1); ALBUMIN 4.6 g/dL (3.5-5.0); ALT/SGPT 43 U/L (21-72); AST/SGOT 39 U/L (17-59); BLOOD UREA NITROGEN 24 mg/dL (9-20); CALCIUM 9.5 mg/dl (8.6-10.4); GFR NON-AFRICAN AMERICAN > 60
[2018-08-22 09:05] VITALS: BP 131/79; PULSE 66; TEMP 98.7; O2SAT 97
[2018-08-22 09:41] LABS: INR 3.4; PROTHROMBIN TIME 37.6 SECONDS (9.7-12.2)
== END 2018-08-22 15:05 | disposition home or self-care (01) | DRG 121 ==
LOC: C.CATHLAB 14:38 → C.9S 15:39 → C.9I 15:44 → C.5S 08-19 17:33
PROVIDERS: ADMIT Hospitalist; ATTEND Hospitalist
PROC: 4A023N7 Measurement of Cardiac Sampling and Pressure, Left Heart, Percutaneous Approach (ICD-10-PCS; principal; 2018-08-14)
PROC: B2151ZZ Fluoroscopy of Left Heart using Low Osmolar Contrast (ICD-10-PCS; 2018-08-14)
PROC: B3101ZZ Fluoroscopy of Thoracic Aorta using Low Osmolar Contrast (ICD-10-PCS; 2018-08-14)
PROC: B2111ZZ Fluoroscopy of Multiple Coronary Arteries using Low Osmolar Contrast (ICD-10-PCS; 2018-08-14)
DX: I21.09 ST elevation (STEMI) myocardial infarction involving other coronary artery of anterior wall (principal); I50.9 Heart failure, unspecified; E87.6 Hypokalemia; I11.0 Hypertensive heart disease with heart failure; I35.2 Nonrheumatic aortic (valve) stenosis with insufficiency; I20.1 Angina pectoris with documented spasm; H00.016 Hordeolum externum left eye, unspecified eyelid; M94.0 Chondrocostal junction syndrome [Tietze]; Z79.01 Long term (current) use of anticoagulants; Z79.899 Other long term (current) drug therapy; Z79.82 Long term (current) use of aspirin; Z91.14 Patient's other noncompliance with medication regimen; Z91.19 Patient's noncompliance with other medical treatment and regimen; Z95.2 Presence of prosthetic heart valve